=== PATIENT | female | born 1970 | race Hispanic/Latino ===

== ENCOUNTER 2020-06-20 15:19 | Inpatient (IN) | payer MEDICAID ==
[2020-06-20] MEDS ORDERED: SODIUM CHLORIDE 0.9% 1000 ML 1,000 ML ONE ×2 (15:27→17:00)
[2020-06-20] MEDS ORDERED: NALOXONE 2 MG/2 ML INJ IV ONE (15:43)
--- NOTE | 2020-06-20 15:45 | Emergency Department Report ---
HPI - General Time Seen by Provider: 06/20/20 15:40 - HPI HPI: This is a 50-year-old female who presents to the emergency department via EMS from home with complaint of altered mental status. Patient was found to have a blood sugar critically high, greater than 500. An IV was placed in route and she was started on some IV fluid resuscitation. The patient was here about 1 month ago for altered mental status as well and was admitted with DKA, hyperkalemia, among other diagnoses. The patient does have a past medical history of insulin-dependent diabetes and has an insulin pump attached. She also has history of chronic kidney disease, iron deficiency anemia, breast cancer, hypertension, previous CVA. The patient is currently a poor historian secondary to her current medical condition. ED Past Medical Hx - Past Medical History Hx Hypertension: Yes Hx CVA: Yes Hx Diabetes: Yes Hx Renal Disease: Yes Additional medical history: HIGH CHOLESTEROL. HERPES - Surgical History Additional Surgical History: LEFT KNEE SURGERY. RIGHT ELBOW SURGERY. THYROIDEC CECILLE - Social History Smoking Status: Unknown if ever smoked - Medications Home Medications: Home Medications Medication Instructions Recorded Confirmed Last Taken Type amLODIPine 10 mg PO QDAY #30 tablet 05/03/20 Unknown Rx carvediloL [Coreg] 6.25 mg PO QDAY@0800 #60 tablet 05/03/20 Unknown Rx hydrALAZINE [Apresoline TAB] 50 mg PO Q8HR #180 tablet 05/03/20 Unknown Rx levoFLOXacin [Levaquin TAB] 500 mg PO QDAY #4 tablet 05/03/20 Unknown Rx ED Review of Systems ROS: Stated complaint: UNRESPONSIVE Other details as noted in HPI Comment: Unobtainable due to pts medical conditions Physical Exam - Physical Exam Physical Exam: GENERAL: The patient is ill-appearing. HENT: Normocephalic. Atraumatic. Patient has moist mucous membranes. EYES: Pupils equal reactive to light bilaterally. NECK: Supple. Trachea is midline. CHEST/LUNGS: Clear to auscultation. There is no respiratory distress noted. HEART/CARDIOVASCULAR: Regular. There is mild tachycardia. There is no murmur. ABDOMEN: Abdomen is soft, nontender. Patient has normal bowel sounds. SKIN: Skin is warm and dry. NEURO: Patient is very sleepy but is arousable. However she goes right back to sleep if not continuously stimulated. Withdraws from painful stimuli. MUSCULOSKELETAL: There is no obvious deformity. ED Course - Reevaluation(s) Reevaluation #1: 06/20/20 19:07 Lab Results 06/20/20 06/20/20 06/20/20 Range/Units 15:48 15:54 15:54 WBC 26.7 H (4.5-11.0) K/mm3 RBC 3.22 L (3.65-5.03) M/mm3 Hgb 11.4 (10.1-14.3) gm/dl Hct 35.6 (30.3-42.9) % MCV 111 H (79-97) fl MCH 36 H (28-32) pg MCHC 32 (30-34) % RDW 15.1 (13.2-15.2) % Plt Count 244 (140-440) K/mm3 Add Manual Diff Complete Total Counted 100 Seg Neuts % (Manual) 84.0 H (40.0-70.0) % Band Neutrophils % 0 % Lymphocytes % (Manual) 10.0 L (13.4-35.0) % Reactive Lymphs % (Man) 0 % Monocytes % (Manual) 6.0 (0.0-7.3) % Eosinophils % (Manual) 0 (0.0-4.3) % Basophils % (Manual) 0 (0.0-1.8) % Metamyelocytes % 0 % Myelocytes % 0 % Promyelocytes % 0 % Blast Cells % 0 % Nucleated RBC % Not Reportable Seg Neutrophils # Man 22.4 H (1.8-7.7) K/mm3 Band Neutrophils # 0.0 K/mm3 Lymphocytes # (Manual) 2.7 (1.2-5.4) K/mm3 Abs React Lymphs (Man) 0.0 K/mm3 Monocytes # (Manual) 1.6 H (0.0-0.8) K/mm3 Eosinophils # (Manual) 0.0 (0.0-0.4) K/mm3 Basophils # (Manual) 0.0 (0.0-0.1) K/mm3 Metamyelocytes # 0.0 K/mm3 Myelocytes # 0.0 K/mm3 Promyelocytes # 0.0 K/mm3 Blast Cells # 0.0 K/mm3 WBC Morphology Not Reportable Hypersegmented Neuts Not Reportable Hyposegmented Neuts Not Reportable Hypogranular Neuts Not Reportable Smudge Cells Not Reportable Toxic Granulation Not Reportable Toxic Vacuolation Not Reportable Dohle Bodies Not Reportable Pelger-Huet Anomaly Not Reportable Mekhi Rods Not Reportable Platelet Estimate Not Reportable Clumped Platelets Not Reportable Plt Clumps, EDTA Not Reportable Large Platelets Not Reportable Giant Platelets Not Reportable Platelet Satelliting Not Reportable Plt Morphology Comment Not Reportable RBC Morphology Normal Dimorphic RBCs Not Reportable Polychromasia Not Reportable Hypochromasia Not Reportable Poikilocytosis Not Reportable Anisocytosis Not Reportable Microcytosis Not Reportable Macrocytosis Not Reportable Spherocytes Not Reportable Pappenheimer Bodies Not Reportable Sickle Cells Not Reportable Target Cells Not Reportable Tear Drop Cells Not Reportable Ovalocytes Not Reportable Helmet Cells Not Reportable Pope-Noble Bodies Not Reportable Adrian Rings Not Reportable [place] Cells Not Reportable Bite Cells Not Reportable Crenated Cell Not Reportable Elliptocytes Not Reportable Acanthocytes (Spur) Not Reportable Rouleaux Not Reportable Hemoglobin C Crystals Not Reportable Schistocytes Not Reportable Malaria parasites Not Reportable Aden Bodies Not Reportable Hem Pathologist Commnt No VBG pH (7.320-7.420) Sodium 133 L (137-145) mmol/L Potassium 6.3 H* (3.6-5.0) mmol/L Chloride 90.8 L (98-107) mmol/L Carbon Dioxide 11 L (22-30) mmol/L Anion Gap 38 mmol/L BUN 48 H (7-17) mg/dL Creatinine 3.3 H (0.6-1.2) mg/dL Estimated GFR 15 ml/min BUN/Creatinine Ratio 15 % Glucose 730 H* (65-100) mg/dL POC Glucose > 500 H (70-105) mg/dL Ketones Quantitative Small (Negative) Calcium 9.6 (8.4-10.2) mg/dL Total Bilirubin 0.40 (0.1-1.2) mg/dL AST 24 (5-40) units/L ALT 14 (7-56) units/L Alkaline Phosphatase 64 (35-129) units/L Ammonia (25-60) umol/L Troponin T 0.025 (0.00-0.029) ng/mL Total Protein 6.5 (6.3-8.2) g/dL Albumin 3.5 L (3.9-5) g/dL Albumin/Globulin Ratio 1.2 % TSH (0.270-4.200) mlU/mL Plasma/Serum Alcohol (0-0.07) % 06/20/20 06/20/20 06/20/20 Range/Units 15:54 15:54 15:54 WBC (4.5-11.0) K/mm3 RBC (3.65-5.03) M/mm3 Hgb (10.1-14.3) gm/dl Hct (30.3-42.9) % MCV (79-97) fl MCH (28-32) pg MCHC (30-34) % RDW (13.2-15.2) % Plt Count (140-440) K/mm3 Add Manual Diff Total Counted Seg Neuts % (Manual) (40.0-70.0) % Band Neutrophils % % Lymphocytes % (Manual) (13.4-35.0) % Reactive Lymphs % (Man) % Monocytes % (Manual) (0.0-7.3) % Eosinophils % (Manual) (0.0-4.3) % Basophils % (Manual) (0.0-1.8) % Metamyelocytes % % Myelocytes % % Promyelocytes % % Blast Cells % % Nucleated RBC % Seg Neutrophils # Man (1.8-7.7) K/mm3 Band Neutrophils # K/mm3 Lymphocytes # (Manual) (1.2-5.4) K/mm3 Abs React Lymphs (Man) K/mm3 Monocytes # (Manual) (0.0-0.8) K/mm3 Eosinophils # (Manual) (0.0-0.4) K/mm3 Basophils # (Manual) (0.0-0.1) K/mm3 Metamyelocytes # K/mm3 Myelocytes # K/mm3 Promyelocytes # K/mm3 Blast Cells # K/mm3 WBC Morphology Hypersegmented Neuts Hyposegmented Neuts Hypogranular Neuts Smudge Cells Toxic Granulation Toxic Vacuolation Dohle Bodies Pelger-Huet Anomaly Mekhi Rods Platelet Estimate Clumped Platelets Plt Clumps, EDTA Large Platelets Giant Platelets Platelet Satelliting Plt Morphology Comment RBC Morphology Dimorphic RBCs Polychromasia Hypochromasia Poikilocytosis Anisocytosis Microcytosis Macrocytosis Spherocytes Pappenheimer Bodies Sickle Cells Target Cells Tear Drop Cells Ovalocytes Helmet Cells Pope-Noble Bodies Adrian Rings [place] Cells Bite Cells Crenated Cell Elliptocytes Acanthocytes (Spur) Rouleaux Hemoglobin C Crystals Schistocytes Malaria parasites Aden Bodies Hem Pathologist Commnt VBG pH (7.320-7.420) Sodium (137-145) mmol/L Potassium (3.6-5.0) mmol/L Chloride (98-107) mmol/L Carbon Dioxide (22-30) mmol/L Anion Gap mmol/L BUN (7-17) mg/dL Creatinine (0.6-1.2) mg/dL Estimated GFR ml/min BUN/Creatinine Ratio % Glucose (65-100) mg/dL POC Glucose (70-105) mg/dL Ketones Quantitative (Negative) Calcium (8.4-10.2) mg/dL Total Bilirubin (0.1-1.2) mg/dL AST (5-40) units/L ALT (7-56) units/L Alkaline Phosphatase (35-129) units/L Ammonia 51.0 (25-60) umol/L Troponin T (0.00-0.029) ng/mL Total Protein (6.3-8.2) g/dL Albumin (3.9-5) g/dL Albumin/Globulin Ratio % TSH 0.349 (0.270-4.200) mlU/mL Plasma/Serum Alcohol < 0.01 (0-0.07) % 06/20/20 Range/Units 15:54 WBC (4.5-11.0) K/mm3 RBC (3.65-5.03) M/mm3 Hgb (10.1-14.3) gm/dl Hct (30.3-42.9) % MCV (79-97) fl MCH (28-32) pg MCHC (30-34) % RDW (13.2-15.2) % Plt Count (140-440) K/mm3 Add Manual Diff Total Counted Seg Neuts % (Manual) (40.0-70.0) % Band Neutrophils % % Lymphocytes % (Manual) (13.4-35.0) % Reactive Lymphs % (Man) % Monocytes % (Manual) (0.0-7.3) % Eosinophils % (Manual) (0.0-4.3) % Basophils % (Manual) (0.0-1.8) % Metamyelocytes % % Myelocytes % % Promyelocytes % % Blast Cells % % Nucleated RBC % Seg Neutrophils # Man (1.8-7.7) K/mm3 Band Neutrophils # K/mm3 Lymphocytes # (Manual) (1.2-5.4) K/mm3 Abs React Lymphs (Man) K/mm3 Monocytes # (Manual) (0.0-0.8) K/mm3 Eosinophils # (Manual) (0.0-0.4) K/mm3 Basophils # (Manual) (0.0-0.1) K/mm3 Metamyelocytes # K/mm3 Myelocytes # K/mm3 Promyelocytes # K/mm3 Blast Cells # K/mm3 WBC Morphology Hypersegmented Neuts Hyposegmented Neuts Hypogranular Neuts Smudge Cells Toxic Granulation Toxic Vacuolation Dohle Bodies Pelger-Huet Anomaly Mekhi Rods Platelet Estimate Clumped Platelets Plt Clumps, EDTA Large Platelets Giant Platelets Platelet Satelliting Plt Morphology Comment RBC Morphology Dimorphic RBCs Polychromasia Hypochromasia Poikilocytosis Anisocytosis Microcytosis Macrocytosis Spherocytes Pappenheimer Bodies Sickle Cells Target Cells Tear Drop Cells Ovalocytes Helmet Cells Pope-Noble Bodies Adrian Rings [place] Cells Bite Cells Crenated Cell Elliptocytes Acanthocytes (Spur) Rouleaux Hemoglobin C Crystals Schistocytes Malaria parasites Aden Bodies Hem Pathologist Commnt VBG pH 7.229 L (7.320-7.420) Sodium (137-145) mmol/L Potassium (3.6-5.0) mmol/L Chloride (98-107) mmol/L Carbon Dioxide (22-30) mmol/L Anion Gap mmol/L BUN (7-17) mg/dL Creatinine (0.6-1.2) mg/dL Estimated GFR ml/min BUN/Creatinine Ratio % Glucose (65-100) mg/dL POC Glucose (70-105) mg/dL Ketones Quantitative (Negative) Calcium (8.4-10.2) mg/dL Total Bilirubin (0.1-1.2) mg/dL AST (5-40) units/L ALT (7-56) units/L Alkaline Phosphatase (35-129) units/L Ammonia (25-60) umol/L Troponin T (0.00-0.029) ng/mL Total Protein (6.3-8.2) g/dL Albumin (3.9-5) g/dL Albumin/Globulin Ratio % TSH (0.270-4.200) mlU/mL Plasma/Serum Alcohol (0-0.07) % ED Medical Decision Making - Lab Data Result diagrams: 06/20/20 15:54 06/20/20 15:54 - Radiology Data Radiology results: report reviewed, image reviewed interpreted by me: Chest x-ray does not show any acute process. There are no pleural effusions, obvious pneumonia and there is no pneumothorax. No significant cardiomegaly. CT head/brain wo con INDICATION: Altered mental status. TECHNIQUE: Routine CT head. All CT scans at this location are performed using CT dose reduction for ALARA by means of automated exposure control. COMPARISON: 04/30/2020 FINDINGS: Intracranial: Unchanged encephalomalacia from prior left MCA distribution infarction. 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 No evidence for acute infarction.. No intracranial hemorrhage. No extra axial c ollection.. No hydrocephalus. No herniation. Sinuses: Paranasal sinuses and mastoid air cells are essentially clear. Orbits: Globes are intact. Calvarium: No acute fracture. IMPRESSION: 1. No acute intracranial abnormality. - Medical Decision Making Patient presents with altered mental status and suspicion of DKA. The patient had a similar presentation about 1 month ago. EMS had a critical high blood sugar of greater than 500. Patient was given a dose of Narcan without any change in her responsiveness. At first the patient had some hypotension and was given a 1 L IV fluid bolus. The patient does appear in DKA with a blood sugar greater than 700, venous pH of 7.22, anion gap of 38 and serum ketones found. She was started on insulin drip. The patient also has hyperkalemia with a potassium of 6.3. This should come down with the insulin drip. Patient has a leukocytosis of 26,000. Patient also has acute on chronic renal failure. Chest x-ray was done that does not show any pneumonia, pleural effusions, or any other acute process. The patient had a CT scan of the head without contrast that does not show any bleed, shift, mass, ischemia, or any other acute process. The patient will be admitted to the ICU and has been accepted for admission by the hospitalist, Dr. Navas. Critical Care Time: Yes Critical care time in (mins) excluding proc time.: 35 Critical care attestation.: If time is entered above; I have spent that time in minutes in the direct care of this critically ill patient, excluding procedure time. Critical care time was spent on this patient in doing her initial evaluation, multiple reevaluations, ordering and interpretation of labs and imaging, insulin drip for her DKA, IV fluid resuscitation, treatment of the hyperkalemia, discussion with the hospitalist service. Critical Care Time: 35 minutes ED Disposition Clinical Impression: Hyperkalemia, Acute encephalopathy DKA (diabetic ketoacidoses) Qualifiers: Diabetes mellitus type: type 1 Diabetes mellitus complication detail: without coma Qualified Code(s): E10.10 - Type 1 diabetes mellitus with ketoacidosis with out coma Hypotension Qualifiers: Hypotension type: unspecified hypotension type Qualified Code(s): I95.9 - Hypotension, unspecified Acute on chronic renal failure Qualifiers: Acute renal failure type: unspecified Chronic kidney disease stage: unspecified stage Qualified Code(s): N17.9 - Acute kidney failure, unspecified; N18.9 - Chronic kidney disease, unspecified Disposition: -09 OP ADMIT IP TO THIS HOSP Is pt being admited?: Yes Condition: Serious Time of Disposition: 17:18
[2020-06-20 16:45] LABS: Alanine Aminotransferase 14 units/L (7-56); Albumin 3.5 g/dL (3.9-5); BUN/Creatinine Ratio 15; Blood Urea Nitrogen 48 mg/dL (7-17); Calcium 9.6 mg/dL (8.4-10.2); Hemolysis Index 12
--- NOTE | 2020-06-20 16:51 | XRay Report ---
CHEST 1 VIEW INDICATION: AMS. COMPARISON: 04/30/2020. FINDINGS: Support devices: None. Heart: Within normal limits. Lungs/Pleura: No acute air space or interstitial disease. Additional findings: None. IMPRESSION: No acute abnormality. Signer Name: Babar Ramirez MD Signed: 06/20/2020 4:47 PM Workstation Name: [id number]
[2020-06-20] MEDS ORDERED: INSULIN REGULAR, HUMAN 100 UNITS in SODIUM CHLORIDE 0.9% 99 ML IV SCH ×2 (17:00→23:00)
--- NOTE | 2020-06-20 17:04 | Cat Scan Report ---
CT head/brain wo con INDICATION: Altered mental status. TECHNIQUE: Routine CT head. All CT scans at this location are performed using CT dose reduction for A LOIS by means of automated exposure control. COMPARISON: 04/30/2020 FINDINGS: Intracranial: Unchanged encephalomalacia from prior left MCA distribution infarction. Unchanged posto perative changes from prior left aneurysm coiling. No evidence for acute infarction.. No intracranial hemorrhage. No extra axial collection.. No hydrocephalus. No herniation. Sinuses: Paranasal sinuses and mastoid air cells are essentially clear. Orbits: Globes are intact. Calvarium: No acute fracture. IMPRESSION: 1. No acute intracranial abnormality. Signer Name: Zackary Jaramillo MD Signed: 06/20/2020 5:00 PM Workstation Name: [id number]
[2020-06-20 17:09] LABS: Hematocrit 35.6 % (30.3-42.9); Hemoglobin 11.4 gm/dl (10.1-14.3); Mean Corpuscular HGB Conc 32 % (30-34); Platelet Count 244 K/mm3 (140-440); Red Blood Count 3.22 M/mm3 (3.65-5.03); Red Cell Distribution Width 15.1 % (13.2-15.2)
[2020-06-20 17:11] LABS: Mean Corpuscular Volume 111 fl (79-97)
[2020-06-20] MEDS ORDERED: SODIUM CHLORIDE 0.9% 1000 ML 1,000 ML IV ONE (17:32)
[2020-06-20 18:19] LABS: Basophils % (Manual) 0 % (0.0-1.8); Eosinophils % (Manual) 0 % (0.0-4.3); Total Cells Counted 100
[2020-06-20 18:20] LABS: RBC Morphology Normal
[2020-06-20 19:54] LABS: Calcium 9.4 mg/dL (8.4-10.2)
[2020-06-20 22:00] LABS: Calcium 9.2 mg/dL (8.4-10.2)
[2020-06-20] MEDS ORDERED: ONDANSETRON 4 MG/2 ML INJ IV PRN (22:20)
[2020-06-20] MEDS ORDERED: METOCLOPRAMIDE 10 MG/2 ML INJ IV PRN ×2 (22:20→22:27)
[2020-06-20] MEDS ORDERED: HYDROmorphone 1 MG/1 ML INJ IV PRN (22:20)
[2020-06-20] MEDS ORDERED: MORPHINE 2 MG/1 ML INJ IV PRN (22:20)
[2020-06-20] MEDS ORDERED: ACETAMINOPHEN 325 MG TAB PO PRN (22:20)
[2020-06-20] MEDS ORDERED: DEXTROSE 50% IN WATER (25GM) 50 ML SYRINGE IV PRN (22:25)
[2020-06-20] MEDS ORDERED: FAMOTIDINE 20 MG/2 ML INJ IV SCH (23:00)
[2020-06-20] MEDS: hydrALAZINE 25 MG TAB PO SCH (23:00)
[2020-06-20] MEDS ORDERED: POTASSIUM CHLORIDE 10 MEQ 10 MEQ/100 ML BAG IV SCH (23:00)
[2020-06-20] MEDS: SODIUM CHLORIDE 0.9% 1000 ML 1,000 ML IV SCH (23:15)
[2020-06-21] MEDS: FAMOTIDINE 20 MG/2 ML INJ IV SCH ×2 (00:47→09:19)
[2020-06-21 02:32] LABS: Bilirubin,Urine NEG (Negative); Blood,Urine NEG (Negative); Color,Urine Yellow (Yellow); Mucus,Urine FEW /HPF; Protein,Urine <15 mg/dL mg/dL (Negative); Urobilinogen,Urine < 2.0 mg/dL (<2.0)
[2020-06-21 02:37] LABS: Amphetamine Screen,Urine PRESUMPTIVE NEGATIVE; Benzodiazepines Screen,Urine PRESUMPTIVE NEGATIVE; Cannabinoid Screen,Urine PRESUMPTIVE POSITIVE; Cocaine Screen,Urine PRESUMPTIVE NEGATIVE; Methadone Screen,Urine PRESUMPTIVE NEGATIVE; Opiate Screen,Urine PRESUMPTIVE NEGATIVE
[2020-06-21] MEDS ORDERED: SODIUM CHLORIDE 0.9% 250ML 250 ML IV ONE (04:16)
[2020-06-21 05:57] LABS: Calcium 8.6 mg/dL (8.4-10.2)
[2020-06-21] MEDS: hydrALAZINE 25 MG TAB PO SCH (06:20)
[2020-06-21] MEDS ORDERED: D5W/0.45% NACL/KCL 20 MEQ 20 MEQ/1,000 ML BAG IV SCH (07:00)
--- NOTE | 2020-06-21 07:21 | History and Physical Report ---
History of Present Illness Date of examination: 06/20/20 Date of admission: 06/20/20 17:59 Chief complaint: Altered mental status since a.m. History of present illness: 50-year-old female with history of type 1 diabetes brought in by EMS from home with altered mental status. Patient was found to have very high blood glucose level of 500 in the emergency room with his around 730. Patient was started on IV fluid resuscitation. Patient is not taking her insulin regularly. Patient has insulin pump in the past. Noncompliant. No nausea vomiting. Decr eased sensorium. No seizures. No fever or chills no exposure to coronavirus. - Past Medical History Hx Hypertension: Yes Hx CVA: Yes Hx Diabetes: Yes Hx Renal Disease: Yes Additional medical history: HIGH CHOLESTEROL. HERPES - Surgical History Additional Surgical History: LEFT KNEE SURGERY. RIGHT ELBOW SURGERY. THYR OIDECTOMY - Social History Smoking Status: Unknown if ever smoked - Medications Home Medications: Home Medications Medication Instructions Recorded Confirmed Last Taken Type amLODIPine 10 mg PO QDAY #30 tablet 05/03/20 Unknown Rx carvediloL [Coreg] 6.25 mg PO QDAY@0800 #60 tablet 05/03/20 Unknown Rx hydrALAZINE [Apresoline TAB] 50 mg PO Q8HR #180 tablet 05/03/20 Unknown Rx levoFLOXacin [Levaquin TAB] 500 mg PO QDAY #4 tablet 05/03/20 Unknown Rx Review of Systems ROS: Constitutional altered sensorium HEENT no sore throat no post nasal drip no diplopia Neck no neck stiffness no lymph gland enlargement Chest and lungs no shortness of breath cough or wheezing CVS no chest pain no diaphoresis no palpitations GI no nausea no vomiting no diarrhea Genitourinary system no dysuria no flank pain Musculoskeletal system no muscle pains no joint pains [employer] altered sensorium Psychiatric no depression no homicidal or suicidal tendencies Hematologic no lymphedema or bruising Endocrine no polydipsia no polyuria no cold intolerance no heat intolerance Medications and Allergies Allergies Allergy/AdvReac Type Severity Reaction Status Date / Time codeine Allergy Itching Verified 06/20/20 16:09 Home Medications Medication Instructions Recorded Confirmed Last Taken Type amLODIPine 10 mg PO QDAY #30 tablet 05/03/20 Unknown Rx carvediloL [Coreg] 6.25 mg PO QDAY@0800 #60 tablet 05/03/20 Unknown Rx hydrALAZINE [Apresoline TAB] 50 mg PO Q8HR #180 tablet 05/03/20 Unknown Rx levoFLOXacin [Levaquin TAB] 500 mg PO QDAY #4 tablet 05/03/20 Unknown Rx Active Meds: Active Medications Acetaminophen (Tylenol) 650 mg PO Q4H PRN PRN Reason: Pain MILD(1-3)/Fever >100.5/ELY Amlodipine Besylate (Amlodipine) 10 mg PO QDAY [facility] Carvedilol (Coreg) 6.25 mg PO QDAY@0800 [facility] Dextrose (D50w (25gm) Syringe) 0 ml IV Q30MIN PRN; Protocol PRN Reason: Hypoglycemia Famotidine (Pepcid) 20 mg IV DAILY [facility] Last Admin: 06/21/20 00:47 Dose: Not Given Documented by: Hydralazine HCl (Apresoline) 50 mg PO Q8HR [facility] Last Admin: 06/21/20 06:20 Dose: Not Given Documented by: Hydromorphone HCl (Dilaudid) 0.5 mg IV Q3H PRN PRN Reason: Pain , Severe (7-10) Insulin Human Regular 100 (units/ Sodium Chloride) 100 mls @ 1 mls/hr IV TITR S ; Protocol Last Titration: 06/21/20 05:22 Dose: 4 units/hr, 4 mls/hr Documented by: Ceftriaxone Sodium (Rocephin/Ns 2 Gm/100 Ml) 2 gm in 100 mls @ 200 mls/hr IV Q24HR [facility]; Protocol Sodium Chloride (Nacl 0.9% 1000 Ml) 1,000 mls @ 150 mls/hr IV DIRECT [facility] Last Admin: 06/20/20 23:15 Dose: 150 mls/hr Documented by: Potassium Chloride/Dextrose/Sod Cl (D5w/0.45% Nacl/Kcl 20 Meq) 20 meq in 1,000 mls @ 125 mls/hr IV DIRECT [facility] Last Admin: 06/21/20 06:56 Dose: 125 mls/hr Documented by: Metoclopramide HCl (Reglan) 5 mg IV Q6H PRN PRN Reason: Nausea And Vomiting Morphine Sulfate (Morphine) 2 mg IV Q4H PRN PRN Reason: Pain, Moderate (4-6) Ondansetron HCl (Zofran) 4 mg IV Q3H PRN PRN Reason: Nausea And Vomiting Sodium Chloride (Sodium Chloride Flush Syringe 10 Ml) 10 ml IV BID [facility] Sodium Chloride (Sodium Chloride Flush Syringe 10 Ml) 10 ml IV PRN PRN PRN Reason: LINE FLUSH Last Admin: 06/20/20 23:10 Dose: 10 ml Documented by: Exam - Constitutional Vitals: Temp Pulse Resp BP Pulse Ox 98.4 F 91 H 15 83/40 100 06/21/20 03:22 06/21/20 06:51 06/21/20 06:51 06/21/20 06:20 06/21/20 06:51 General appearance: Present: no acute distress, well-nourished - EENT Eyes: Present: PERRL ENT: hearing intact, clear oral mucosa - Neck Neck: Present: supple, normal ROM - Respiratory Respiratory effort: normal Respiratory: bilateral: CTA - Cardiovascular Heart rate: 78 Rhythm: regular Heart Sounds: Present: S1 & S2. Absent: rub, click - Extremities Extremities: pulses symmetrical, No edema Peripheral Pulses: within normal limits - Abdominal General gastrointestinal: Present: soft, non-tender, non-distended, normal bowel sounds Female genitourinary: Present: normal - Integumentary Integumentary: Present: clear, warm, dry - Musculoskeletal Musculoskeletal: strength equal bilaterally, generalized weakness - Psychiatric Psychiatric: depressed, other (Patient is lethargic and altered sensorium) - Neurologic Neurologic: CNII-XII intact, moves all extremities HEART Score - HEART Score Troponin: Troponin T 0.025 ng/mL (0.00-0.029) 06/20/20 15:54 Results - Labs CBC & Chem 7: 06/20/20 15:54 06/21/20 04:25 Labs: Laboratory Last Values WBC 26.7 K/mm3 (4.5-11.0) H 06/20/20 15:54 RBC 3.22 M/mm3 (3.65-5.03) L 06/20/20 15:54 Hgb 11.4 gm/dl (10.1-14.3) 06/20/20 15:54 Hct 35.6 % (30.3-42.9) 06/20/20 15:54 MCV 111 fl (79-97) H 06/20/20 15:54 MCH 36 pg (28-32) H 06/20/20 15:54 MCHC 32 % (30-34) 06/20/20 15:54 RDW 15.1 % (13.2-15.2) 06/20/20 15:54 Plt Count 244 K/mm3 (140-440) 06/20/20 15:54 Add Manual Diff Complete 06/20/20 15:54 Total Counted 100 06/20/20 15:54 Seg Neuts % (Manual) 84.0 % (40.0-70.0) H 06/20/20 15:54 Band Neutrophils % 0 % 06/20/20 15:54 Lymphocytes % (Manual) 10.0 % (13.4-35.0) L 06/20/20 15:54 Reactive Lymphs % (Man) 0 % 06/20/20 15:54 Monocytes % (Manual) 6.0 % (0.0-7.3) 06/20/20 15:54 Eosinophils % (Manual) 0 % (0.0-4.3) 06/20/20 15:54 Basophils % (Manual) 0 % (0.0-1.8) 06/20/20 15:54 Metamyelocytes % 0 % 06/20/20 15:54 Myelocytes % 0 % 06/20/20 15:54 Promyelocytes % 0 % 06/20/20 15:54 Blast Cells % 0 % 06/20/20 15:54 Nucleated RBC % Not Reportable 06/20/20 15:54 Seg Neutrophils # Man 22.4 K/mm3 (1.8-7.7) H 06/20/20 15:54 Band Neutrophils # 0.0 K/mm3 06/20/20 15:54 Lymphocytes # (Manual) 2.7 K/mm3 (1.2-5.4) 06/20/20 15:54 Abs React Lymphs (Man) 0.0 K/mm3 06/20/20 15:54 Monocytes # (Manual) 1.6 K/mm3 (0.0-0.8) H 06/20/20 15:54 Eosinophils # (Manual) 0.0 K/mm3 (0.0-0.4) 06/20/20 15:54 Basophils # (Manual) 0.0 K/mm3 (0.0-0.1) 06/20/20 15:54 Metamyelocytes # 0.0 K/mm3 06/20/20 15:54 Myelocytes # 0.0 K/mm3 06/20/20 15:54 Promyelocytes # 0.0 K/mm3 06/20/20 15:54 Blast Cells # 0.0 K/mm3 06/20/20 15:54 WBC Morphology Not Reportable 06/20/20 15:54 Hypersegmented Neuts Not Reportable 06/20/20 15:54 Hyposegmented Neuts Not Reportable 06/20/20 15:54 Hypogranular Neuts Not Reportable 06/20/20 15:54 Smudge Cells Not Reportable 06/20/20 15:54 Toxic Granulation Not Reportable 06/20/20 15:54 Toxic Vacuolation Not Reportable 06/20/20 15:54 Dohle Bodies Not Reportable 06/20/20 15:54 Pelger-Huet Anomaly Not Reportable 06/20/20 15:54 Mekhi Rods Not Reportable 06/20/20 15:54 Platelet Estimate Not Reportable 06/20/20 15:54 Clumped Platelets Not Reportable 06/20/20 15:54 Plt Clumps, EDTA Not Reportable 06/20/20 15:54 Large Platelets Not Reportable 06/20/20 15:54 Giant Platelets Not Reportable 06/20/20 15:54 Platelet Satelliting Not Reportable 06/20/20 15:54 Plt Morphology Comment Not Reportable 06/20/20 15:54 RBC Morphology Normal 06/20/20 15:54 Dimorphic RBCs Not Reportable 06/20/20 15:54 Polychromasia Not Reportable 06/20/20 15:54 Hypochromasia Not Reportable 06/20/20 15:54 Poikilocytosis Not Reportable 06/20/20 15:54 Anisocytosis Not Reportable 06/20/20 15:54 Microcytosis Not Reportable 06/20/20 15:54 Macrocytosis Not Reportable 06/20/20 15:54 Spherocytes Not Reportable 06/20/20 15:54 Pappenheimer Bodies Not Reportable 06/20/20 15:54 Sickle Cells Not Reportable 06/20/20 15:54 Target Cells Not Reportable 06/20/20 15:54 Tear Drop Cells Not Reportable 06/20/20 15:54 Ovalocytes Not Reportable 06/20/20 15:54 Helmet Cells Not Reportable 06/20/20 15:54 [place] Bodies Not Reportable 06/20/20 15:54 Eros Rings Not Reportable 06/20/20 15:54 [place] Cells Not Reportable 06/20/20 15:54 Bite Cells Not Reportable 06/20/20 15:54 Crenated Cell Not Reportable 06/20/20 15:54 Elliptocytes Not Reportable 06/20/20 15:54 Acanthocytes (Spur) Not Reportable 06/20/20 15:54 Rouleaux Not Reportable 06/20/20 15:54 Hemoglobin C Crystals Not Reportable 06/20/20 15:54 Schistocytes Not Reportable 06/20/20 15:54 Malaria parasites Not Reportable 06/20/20 15:54 Aden Bodies Not Reportable 06/20/20 15:54 Hem Pathologist Commnt No 06/20/20 15:54 VBG pH 7.229 (7.320-7.420) L 06/20/20 15:54 Sodium 143 mmol/L (137-145) 06/21/20 04:25 Potassium 4.0 mmol/L (3.6-5.0) 06/21/20 04:25 Chloride 108.9 mmol/L (98-107) H 06/21/20 04:25 Carbon Dioxide 19 mmol/L (22-30) L 06/21/20 04:25 Anion Gap 19 mmol/L 06/21/20 04:25 BUN 54 mg/dL (7-17) H 06/21/20 04:25 Creatinine 3.2 mg/dL (0.6-1.2) H 06/21/20 04:25 Estimated GFR 15 ml/min 06/21/20 04:25 BUN/Creatinine Ratio 17 % 06/21/20 04:25 Glucose 193 mg/dL (65-100) H 06/21/20 04:25 POC Glucose 189 mg/dL (70-105) H 06/21/20 05:36 Hemoglobin A1c 9.3 % (4-6) H 06/20/20 23:30 Ketones Quantitative Small (Negative) 06/20/20 15:54 Calcium 8.6 mg/dL (8.4-10.2) 06/21/20 04:25 Phosphorus 1.40 mg/dL (2.5-4.5) L D 06/20/20 23:30 Magnesium 2.10 mg/dL (1.7-2.3) 06/20/20 23:30 Total Bilirubin 0.40 mg/dL (0.1-1.2) 06/20/20 15:54 AST 24 units/L (5-40) 06/20/20 15:54 ALT 14 units/L (7-56) 06/20/20 15:54 Alkaline Phosphatase 64 units/L (35-129) 06/20/20 15:54 Ammonia 51.0 umol/L (25-60) 06/20/20 15:54 Troponin T 0.025 ng/mL (0.00-0.029) 06/20/20 15:54 Total Protein 6.5 g/dL (6.3-8.2) 06/20/20 15:54 Albumin 3.5 g/dL (3.9-5) L 06/20/20 15:54 Albumin/Globulin Ratio 1.2 % 06/20/20 15:54 TSH 0.349 mlU/mL (0.270-4.200) 06/20/20 15:54 Urine Color Yellow (Yellow) 06/21/20 01:50 Urine Turbidity Cloudy (Clear) 06/21/20 01:50 Urine pH 5.0 (5.0-7.0) 06/21/20 01:50 Ur Specific [place] 1.013 (1.003-1.030) 06/21/20 01:50 Urine Protein <15 mg/dl mg/dL (Negative) 06/21/20 01:50 Urine Glucose (UA) >=500 mg/dL (Negative) 06/21/20 01:50 Urine Ketones 20 mg/dL (Negative) 06/21/20 01:50 Urine Blood Neg (Negative) 06/21/20 01:50 Urine Nitrite Neg (Negative) 06/21/20 01:50 Urine Bilirubin Neg (Negative) 06/21/20 01:50 Urine Urobilinogen < 2.0 mg/dL (<2.0) 06/21/20 01:50 Ur Leukocyte Esterase Neg (Negative) 06/21/20 01:50 Urine WBC (Auto) 4.0 /HPF (0.0-6.0) 06/21/20 01:50 Urine RBC (Auto) 7.0 /HPF (0.0-6.0) 06/21/20 01:50 U Epithel Cells (Auto) 21.0 /HPF (0-13.0) H 06/21/20 01:50 Urine Mucus Few /HPF 06/21/20 01:50 Urine Creatinine 74.0 mg/dL (0.1-20.0) H 06/21/20 01:50 Urine Microalbumin 4.0 mg/dL (0.1-34.0) 06/21/20 01:50 Microalb/Creat Ratio 54.0 ug/mg 06/21/20 01:50 Urine Opiates Screen Presumptive negative 06/21/20 01:50 Urine Methadone Screen Presumptive negative 06/21/20 01:50 Ur Barbiturates Screen Presumptive negative 06/21/20 01:50 Ur Phencyclidine Scrn Presumptive negative 06/21/20 01:50 Ur Amphetamines Screen Presumptive negative 06/21/20 01:50 U Benzodiazepines Scrn Presumptive negative 06/21/20 01:50 Urine Cocaine Screen Presumptive negative 06/21/20 01:50 U Marijuana (THC) Screen Presumptive positive 06/21/20 01:50 Drugs of Abuse Note Disclamer 06/21/20 01:50 Plasma/Serum Alcohol < 0.01 % (0-0.07) 06/20/20 15:54 Short CBC 06/20/20 Range/Units 15:54 WBC 26.7 H (4.5-11.0) K/mm3 Hgb 11.4 (10.1-14.3) gm/dl Hct 35.6 (30.3-42.9) % Plt Count 244 (140-440) K/mm3 BMP 06/20/20 06/20/20 06/20/20 15:54 19:10 21:30 Sodium 133 L 136 L 138 Potassium 6.3 H* 5.9 H 4.8 Chloride 90.8 L 91.8 L 97.5 L Carbon Dioxide 11 L 7 L* 11 L BUN 48 H 48 H 49 H Creatinine 3.3 H 3.2 H 3.3 H Glucose 730 H* 687 H* 593 H* Calcium 9.6 9.4 9.2 06/20/20 06/21/20 23:30 04:25 Sodium 138 143 Potassium 4.4 4.0 Chloride 100.5 108.9 H Carbon Dioxide 17 L 19 L BUN 51 H 54 H Creatinine 3.4 H 3.2 H Glucose 447 H 193 H Calcium 9.0 8.6 Cardiac Enzymes 06/20/20 Range/Units 15:54 Troponin T 0.025 (0.00-0.029) ng/mL Liver Function 06/20/20 Range/Units 15:54 Total Bilirubin 0.40 (0.1-1.2) mg/dL AST 24 (5-40) units/L ALT 14 (7-56) units/L Alkaline Phosphatase 64 (35-129) units/L Albumin 3.5 L (3.9-5) g/dL Urine 06/21/20 Range/Units 01:50 Urine Color Yellow (Yellow) Urine pH 5.0 (5.0-7.0) Ur Specific [place] 1.013 (1.003-1.030) Urine Protein <15 mg/dl (Negative) mg/dL Urine Glucose (UA) >=500 (Negative) mg/dL - Imaging and Cardiology EKG: report reviewed Chest x-ray: report reviewed CT Scan - head: report reviewed (No acute findings) [place]/IV: Voiding Method External Female Catheter IV Catheter Type [Right Peripheral IV Forearm] Assessment and Plan Assessment and plan: Critical care statement The high probability OF a clinically significant sudden or life-threatening deterioration of the cardiorespiratory system and endocrine system required my full and direct attention, intervention and postoperative management. The aggregate critical care time was 40 minutes. The time is in addition to time spent performing reported procedures but includes the followin: Data review and interpretation 2: Patient assessment and monitoring of vital signs 3: Documentation 4:: Medication orders and management Advance Directives: Yes (Full code) VTE prophylaxis?: Chemical Plan of care discussed with patient/family: Yes - Patient Problems (1) Acute metabolic encephalopathy Current Visit: Yes Status: Acute Plan to address problem: Secondary to DKA and electrolyte disturbances Patient started on DKA protocol Encephalopathy should improve with IV insulin and correction of electrolytes (2) DKA (diabetic ketoacidoses) Current Visit: Yes Status: Acute Qualifiers: Diabetes mellitus type: type 1 Diabetes mellitus complication detail: without coma Qualified Code(s): E10.10 - Type 1 diabetes mellitus with ketoacidosis without coma Plan to address problem: DKA protocol IV insulin IV fluids (3) Hyperkalemia Current Visit: Yes Status: Acute Plan to address problem: Should correct with correction of blood glucose levels (4) Sepsis Current Visit: Yes Status: Acute Plan to address problem: Patient has a high white count of 26,000 Source of infection not known Urinalysis and urine cultures ordered Patient started on IV Rocephin empirically Possible demargination (5) CKD (chronic kidney disease) Current Visit: Yes Status: Acute Qualifiers: Chronic kidney disease stage: stage 4 (severe) Qualified Code(s): N18.4 - Chronic kidney disease, stage 4 (severe) Plan to address problem: Nephrology consult requested (6) Hyperlipidemia Current Visit: Yes Status: Chronic Qualifiers: Hyperlipidemia type: mixed hyperlipidemia Qualified Code(s): E78.2 - Mixed hyperlipidemia Plan to address problem: On statins (7) DVT prophylaxis Current Visit: Yes Status: Acute Plan to address problem: On heparin and GI prophylaxis
[2020-06-21] MEDS ORDERED: carvediloL 6.25 MG TAB PO SCH (08:00)
--- NOTE | 2020-06-21 08:42 | Progress Note ---
Assessment and Plan Assessment and plan: --Acute metabolic encephalopathy Current Visit: Yes Status: Acute Plan to address problem: Multifactorial .secondary to DKA, severe acidosis Underlying electrolyte abnormalities, acute on chronic kidney disease Treat underlying cause, closely monitor --DKA (diabetic ketoacidoses) Current Visit: Yes Status: Acute Plan to address problem: Continue DKA pathway per protocol,Insulin drip, rigorous IV hydration Monitor electrolytes, correct as needed, Monitor a gap, bicarbonate, Diabetic education, nutrition education We will set up home health nurse for disease monitoring at discharge When the gap closes, and acidosis improves May start ADA diet and transition to long-acting insulin, HbA1c 9.3 -- Hyperkalemia; present on admission Current Visit: Yes Status: Acute Plan to address problem: Resolved .closely monitor electrolytes and correct as needed --Possible sepsis Current Visit: Yes Status: Acute Plan to address problem: Patient has a high white count of 26,000 Source of infection not known Urinalysis and urine cultures ordered Patient started on IV Rocephin empirically --Acute on CKD 3 (chronic kidney disease) Current Visit: Yes Status: Acute Plan to address problem: Due to diabetic nephropathy , severe dehydration prerenal azotemia As well as vasomotor nephropathy, avoid nephrotoxins nephrology consulted, renal ultrasound if needed Renal dosing of medications --Dyslipidemia ; Current Visit: Yes Status: Chronic Plan to address problem: Continue statins, low-cholesterol diet --DVT prophylaxis Current Visit: Yes Status: Acute Plan to address problem: On heparin and GI prophylaxis We will closely monitor the patient and adjust the management as needed Plan of care reviewed with the patient and her nurse Critical care time 40 minutes Follow next BMP, transition to long-acting insulin starting diet if Anion gap is closed The high probability of a clinically significant, sudden or life threatening deterioration of the [Metabolic, renal , neurological and endocrine] system(s) required my full and direct attention, intervention and personal management. The aggregate critical care time was [32] minutes without overlap. Time includes spent on [x] Data Review and interpretation [x] Patient assessment and monitoring of vital signs [x] Documentation [x] Medication orders and management History Interval history: I have seen and examined the patient at the bedside in ICU this morning Patient's chart, tests reports, current medications reviewed. Patient was admitted with diabetic ketoacidosis On DKA pathway with insulin drip and IV fluids Patient feels slightly better wants some food Vital signs noted Hospitalist Physical - Constitutional Vitals: Temp Pulse Resp BP Pulse Ox 98.4 F 91 H 15 83/40 100 06/21/20 03:22 06/21/20 06:51 06/21/20 06:51 06/21/20 06:20 06/21/20 06:51 General appearance: Present: no acute distress, well-nourished - EENT Eyes: Present: PERRL, EOM intact - Neck Neck: Present: supple, normal ROM - Respiratory Respiratory effort: normal Respiratory: bilateral: diminished, negative: rales, rhonchi, wheezing - Cardiovascular Rhythm: regular Heart Sounds: Present: S1 & S2 - Extremities Extremities: no ischemia, No edema - Abdominal General gastrointestinal: soft, non-tender, non-distended, normal bowel sounds - Integumentary Integumentary: Present: clear, warm - Psychiatric Psychiatric: appropriate mood/affect - Neurologic Neurologic: CNII-XII intact HEART Score - HEART Score Troponin: Troponin T 0.025 ng/mL (0.00-0.029) 06/20/20 15:54 Results - Labs CBC & Chem 7: 06/20/20 15:54 06/21/20 10:26 Labs: Laboratory Last Values WBC 26.7 K/mm3 (4.5-11.0) H 06/20/20 15:54 RBC 3.22 M/mm3 (3.65-5.03) L 06/20/20 15:54 Hgb 11.4 gm/dl (10.1-14.3) 06/20/20 15:54 Hct 35.6 % (30.3-42.9) 06/20/20 15:54 MCV 111 fl (79-97) H 06/20/20 15:54 MCH 36 pg (28-32) H 06/20/20 15:54 MCHC 32 % (30-34) 06/20/20 15:54 RDW 15.1 % (13.2-15.2) 06/20/20 15:54 Plt Count 244 K/mm3 (140-440) 06/20/20 15:54 Add Manual Diff Complete 06/20/20 15:54 Total Counted 100 06/20/20 15:54 Seg Neuts % (Manual) 84.0 % (40.0-70.0) H 06/20/20 15:54 Band Neutrophils % 0 % 06/20/20 15:54 Lymphocytes % (Manual) 10.0 % (13.4-35.0) L 06/20/20 15:54 Reactive Lymphs % (Man) 0 % 06/20/20 15:54 Monocytes % (Manual) 6.0 % (0.0-7.3) 06/20/20 15:54 Eosinophils % (Manual) 0 % (0.0-4.3) 06/20/20 15:54 Basophils % (Manual) 0 % (0.0-1.8) 06/20/20 15:54 Metamyelocytes % 0 % 06/20/20 15:54 Myelocytes % 0 % 06/20/20 15:54 Promyelocytes % 0 % 06/20/20 15:54 Blast Cells % 0 % 06/20/20 15:54 Nucleated RBC % Not Reportable 06/20/20 15:54 Seg Neutrophils # Man 22.4 K/mm3 (1.8-7.7) H 06/20/20 15:54 Band Neutrophils # 0.0 K/mm3 06/20/20 15:54 Lymphocytes # (Manual) 2.7 K/mm3 (1.2-5.4) 06/20/20 15:54 Abs React Lymphs (Man) 0.0 K/mm3 06/20/20 15:54 Monocytes # (Manual) 1.6 K/mm3 (0.0-0.8) H 06/20/20 15:54 Eosinophils # (Manual) 0.0 K/mm3 (0.0-0.4) 06/20/20 15:54 Basophils # (Manual) 0.0 K/mm3 (0.0-0.1) 06/20/20 15:54 Metamyelocytes # 0.0 K/mm3 06/20/20 15:54 Myelocytes # 0.0 K/mm3 06/20/20 15:54 Promyelocytes # 0.0 K/mm3 06/20/20 15:54 Blast Cells # 0.0 K/mm3 06/20/20 15:54 WBC Morphology Not Reportable 06/20/20 15:54 Hypersegmented Neuts Not Reportable 06/20/20 15:54 Hyposegmented Neuts Not Reportable 06/20/20 15:54 Hypogranular Neuts Not Reportable 06/20/20 15:54 Smudge Cells Not Reportable 06/20/20 15:54 Toxic Granulation Not Reportable 06/20/20 15:54 Toxic Vacuolation Not Reportable 06/20/20 15:54 Dohle Bodies Not Reportable 06/20/20 15:54 Pelger-Huet Anomaly Not Reportable 06/20/20 15:54 Mekhi Rods Not Reportable 06/20/20 15:54 Platelet Estimate Not Reportable 06/20/20 15:54 Clumped Platelets Not Reportable 06/20/20 15:54 Plt Clumps, EDTA Not Reportable 06/20/20 15:54 Large Platelets Not Reportable 06/20/20 15:54 Giant Platelets Not Reportable 06/20/20 15:54 Platelet Satelliting Not Reportable 06/20/20 15:54 Plt Morphology Comment Not Reportable 06/20/20 15:54 RBC Morphology Normal 06/20/20 15:54 Dimorphic RBCs Not Reportable 06/20/20 15:54 Polychromasia Not Reportable 06/20/20 15:54 Hypochromasia Not Reportable 06/20/20 15:54 Poikilocytosis Not Reportable 06/20/20 15:54 Anisocytosis Not Reportable 06/20/20 15:54 Microcytosis Not Reportable 06/20/20 15:54 Macrocytosis Not Reportable 06/20/20 15:54 Spherocytes Not Reportable 06/20/20 15:54 Pappenheimer Bodies Not Reportable 06/20/20 15:54 Sickle Cells Not Reportable 06/20/20 15:54 Target Cells Not Reportable 06/20/20 15:54 Tear Drop Cells Not Reportable 06/20/20 15:54 Ovalocytes Not Reportable 06/20/20 15:54 Helmet Cells Not Reportable 06/20/20 15:54 Pope-Wheeling Bodies Not Reportable 06/20/20 15:54 Cantil Rings Not Reportable 06/20/20 15:54 Colette Cells Not Reportable 06/20/20 15:54 Bite Cells Not Reportable 06/20/20 15:54 Crenated Cell Not Reportable 06/20/20 15:54 Elliptocytes Not Reportable 06/20/20 15:54 Acanthocytes (Spur) Not Reportable 06/20/20 15:54 Rouleaux Not Reportable 06/20/20 15:54 Hemoglobin C Crystals Not Reportable 06/20/20 15:54 Schistocytes Not Reportable 06/20/20 15:54 Malaria parasites Not Reportable 06/20/20 15:54 Aden Bodies Not Reportable 06/20/20 15:54 Hem Pathologist Commnt No 06/20/20 15:54 VBG pH 7.229 (7.320-7.420) L 06/20/20 15:54 Sodium 143 mmol/L (137-145) 06/21/20 04:25 Potassium 4.0 mmol/L (3.6-5.0) 06/21/20 04:25 Chloride 108.9 mmol/L (98-107) H 06/21/20 04:25 Carbon Dioxide 19 mmol/L (22-30) L 06/21/20 04:25 Anion Gap 19 mmol/L 06/21/20 04:25 BUN 54 mg/dL (7-17) H 06/21/20 04:25 Creatinine 3.2 mg/dL (0.6-1.2) H 06/21/20 04:25 Estimated GFR 15 ml/min 06/21/20 04:25 BUN/Creatinine Ratio 17 % 06/21/20 04:25 Glucose 193 mg/dL (65-100) H 06/21/20 04:25 POC Glucose 125 mg/dL (70-105) H 06/21/20 08:29 Hemoglobin A1c 9.3 % (4-6) H 06/20/20 23:30 Ketones Quantitative Small (Negative) 06/20/20 15:54 Calcium 8.6 mg/dL (8.4-10.2) 06/21/20 04:25 Phosphorus 1.40 mg/dL (2.5-4.5) L D 06/20/20 23:30 Magnesium 2.10 mg/dL (1.7-2.3) 06/20/20 23:30 Total Bilirubin 0.40 mg/dL (0.1-1.2) 06/20/20 15:54 AST 24 units/L (5-40) 06/20/20 15:54 ALT 14 units/L (7-56) 06/20/20 15:54 Alkaline Phosphatase 64 units/L (35-129) 06/20/20 15:54 Ammonia 51.0 umol/L (25-60) 06/20/20 15:54 Troponin T 0.025 ng/mL (0.00-0.029) 06/20/20 15:54 Total Protein 6.5 g/dL (6.3-8.2) 06/20/20 15:54 Albumin 3.5 g/dL (3.9-5) L 06/20/20 15:54 Albumin/Globulin Ratio 1.2 % 06/20/20 15:54 TSH 0.349 mlU/mL (0.270-4.200) 06/20/20 15:54 Urine Color Yellow (Yellow) 06/21/20 01:50 Urine Turbidity Cloudy (Clear) 06/21/20 01:50 Urine pH 5.0 (5.0-7.0) 06/21/20 01:50 Ur Specific [place] 1.013 (1.003-1.030) 06/21/20 01:50 Urine Protein <15 mg/dl mg/dL (Negative) 06/21/20 01:50 Urine Glucose (UA) >=500 mg/dL (Negative) 06/21/20 01:50 Urine Ketones 20 mg/dL (Negative) 06/21/20 01:50 Urine Blood Neg (Negative) 06/21/20 01:50 Urine Nitrite Neg (Negative) 06/21/20 01:50 Urine Bilirubin Neg (Negative) 06/21/20 01:50 Urine Urobilinogen < 2.0 mg/dL (<2.0) 06/21/20 01:50 Ur Leukocyte Esterase Neg (Negative) 06/21/20 01:50 Urine WBC (Auto) 4.0 /HPF (0.0-6.0) 06/21/20 01:50 Urine RBC (Auto) 7.0 /HPF (0.0-6.0) 06/21/20 01:50 U Epithel Cells (Auto) 21.0 /HPF (0-13.0) H 06/21/20 01:50 Urine Mucus Few /HPF 06/21/20 01:50 Urine Creatinine 74.0 mg/dL (0.1-20.0) H 06/21/20 01:50 Urine Microalbumin 4.0 mg/dL (0.1-34.0) 06/21/20 01:50 Microalb/Creat Ratio 54.0 ug/mg 06/21/20 01:50 Urine Opiates Screen Presumptive negative 06/21/20 01:50 Urine Methadone Screen Presumptive negative 06/21/20 01:50 Ur Barbiturates Screen Presumptive negative 06/21/20 01:50 Ur Phencyclidine Scrn Presumptive negative 06/21/20 01:50 Ur Amphetamines Screen Presumptive negative 06/21/20 01:50 U Benzodiazepines Scrn Presumptive negative 06/21/20 01:50 Urine Cocaine Screen Presumptive negative 06/21/20 01:50 U Marijuana (THC) Screen Presumptive positive 06/21/20 01:50 Drugs of Abuse Note Disclamer 06/21/20 01:50 Plasma/Serum Alcohol < 0.01 % (0-0.07) 06/20/20 15:54 [place]/IV: Voiding Method External Female Catheter IV Catheter Type [Right Peripheral IV Forearm] Active Medications - Current Medications Current Medications: Generic Name Dose Route Start Last Admin Trade Name Freq PRN Reason Stop Dose Admin Acetaminophen 650 mg 06/20/20 22:20 Tylenol PO Q4H PRN Pain MILD(1-3)/Fever >100.5/ELY Amlodipine Besylate 10 mg 06/21/20 10:00 Amlodipine PO QDAY GHASASN Carvedilol 6.25 mg 06/21/20 08:00 Coreg PO QDAY@0800 GHASSAN Dextrose 0 ml 06/20/20 22:25 D50w (25gm) Syringe IV Q30MIN PRN Hypoglycemia Protocol Famotidine 20 mg 06/20/20 23:00 06/21/20 00:47 Pepcid IV Not Given DAILY GHASSAN Hydralazine HCl 50 mg 06/20/20 23:00 06/21/20 06:20 Apresoline PO Not Given Q8HR GHASSAN Hydromorphone HCl 0.5 mg 06/20/20 22:20 Dilaudid IV Q3H PRN Pain , Severe (7-10) Insulin Human Regular 100 100 mls @ 1 mls/hr 06/20/20 23:00 06/21/20 07:27 units/ Sodium Chloride IV 1.5 units/hr TITR GHASSAN 1.5 mls/hr Titration Protocol 1 UNITS/HR Ceftriaxone Sodium 2 gm in 100 mls @ 200 mls/hr 06/21/20 10:00 Rocephin/Ns 2 Gm/100 Ml IV Q24HR GHASSAN Protocol Sodium Chloride 1,000 mls @ 150 mls/hr 06/20/20 23:00 06/20/20 23:15 Nacl 0.9% 1000 Ml IV 150 mls/hr DIRECT GHASSAN Administration Potassium Chloride/Dextrose/Sod Cl 20 meq in 1,000 mls @ 125 mls/hr 06/21/20 07:00 06/21/20 06:56 D5w/0.45% Nacl/Kcl 20 Meq IV 125 mls/hr DIRECT GHASSAN Administration Metoclopramide HCl 5 mg 06/20/20 22:27 Reglan IV Q6H PRN Nausea And Vomiting Morphine Sulfate 2 mg 06/20/20 22:20 Morphine IV Q4H PRN Pain, Moderate (4-6) Ondansetron HCl 4 mg 06/20/20 22:20 Zofran IV Q3H PRN Nausea And Vomiting Sodium Chloride 10 ml 06/21/20 10:00 Sodium Chloride Flush Syringe 10 Ml IV BID GHASSAN Sodium Chloride 10 ml 06/20/20 22:20 06/20/20 23:10 Sodium Chloride Flush Syringe 10 Ml IV 10 ml PRN PRN Administration LINE FLUSH
[2020-06-21] MEDS: cefTRIAXone/NS 2 GM/100 ML 2 GM/100 ML BAG IV SCH (09:19)
--- NOTE | 2020-06-21 09:51 | Consultation ---
History of Present Illness - Reason for Consult Consult date: 06/21/20 acute renal failure, chronic renal failure - History of Present Illness The patient is a 50 YO female with history significant for DM type 1 on Insulin pump, Hypertension, CVA, Iron deficiency anemia, Breast cancer and CKD stage 3 who presented to [facility] ED 06/20 with AMS. Patient couldn't remember the events and information was obtained from prior documentation. SHe admits to [facility]. Pt was found to have a blood sugar greater than 500. She was started on IV fluid enroute. The patient was here about 1 month ago with similar presentation and was admitted with DKA, hyperkalemia, among other diagnoses. Initial BP was 81/33. Labs significant for Creat 3.3, BUN 48, Sodium 133, K 6.3, bicarb 11, Glucose 730 and WBC 26.7. Patient was on IV Insulin at the time of eval. Admitted to ICU for treatment of DKA, ?Sepsis and ISSAC. Nephrology was consulted for further evaluation. Past History Past Medical History: other (See HPI.) Medications and Allergies Allergies Allergy/AdvReac Type Severity Reaction Status Date / Time codeine Allergy Itching Verified 06/20/20 16:09 Home Medications Medication Instructions Recorded Confirmed Last Taken Type amLODIPine 10 mg PO QDAY #30 tablet 05/03/20 06/21/20 Unknown Rx carvediloL [Coreg] 6.25 mg PO QDAY@0800 #60 tablet 05/03/20 06/21/20 Unknown Rx hydrALAZINE [Apresoline TAB] 50 mg PO Q8HR #180 tablet 05/03/20 06/21/20 Unknown Rx Levothyroxine [Synthroid] 125 mcg PO DAILY 06/21/20 06/21/20 Unknown History valACYclovir [Valtrex] 500 mg PO DAILY 06/21/20 06/21/20 Unknown History Active Meds: Active Medications Acetaminophen (Tylenol) 650 mg PO Q4H PRN PRN Reason: Pain MILD(1-3)/Fever >100.5/ELY Amlodipine Besylate (Amlodipine) 10 mg PO QDAY GHASSAN Carvedilol (Coreg) 6.25 mg PO QDAY@0800 [facility] Last Admin: 06/21/20 08:59 Dose: Not Given Documented by: Dextrose (D50w (25gm) Syringe) 0 ml IV Q30MIN PRN; Protocol PRN Reason: Hypoglycemia Famotidine (Pepcid) 20 mg IV DAILY [facility] Last Admin: 06/21/20 09:19 Dose: 20 mg Documented by: Hydralazine HCl (Apresoline) 50 mg PO Q8HR GHASSAN Last Admin: 06/21/20 06:20 Dose: Not Given Documented by: Hydromorphone HCl (Dilaudid) 0.5 mg IV Q3H PRN PRN Reason: Pain , Severe (7-10) Insulin Human Regular 100 (units/ Sodium Chloride) 100 mls @ 1 mls/hr IV TITR GHASSAN; Protocol Last Titration: 06/21/20 08:55 Dose: 2 units/hr, 2 mls/hr Documented by: Ceftriaxone Sodium (Rocephin/Ns 2 Gm/100 Ml) 2 gm in 100 mls @ 200 mls/hr IV Q24HR GHASSAN; Protocol Last Admin: 06/21/20 09:19 Dose: 200 mls/hr Documented by: Sodium Chloride (Nacl 0.9% 1000 Ml) 1,000 mls @ 150 mls/hr IV DIRECT GHASSAN Last Admin: 06/20/20 23:15 Dose: 150 mls/hr Documented by: Potassium Chloride/Dextrose/Sod Cl (D5w/0.45% Nacl/Kcl 20 Meq) 20 meq in 1,000 mls @ 125 mls/hr IV DIRECT GHASSAN Last Admin: 06/21/20 06:56 Dose: 125 mls/hr Documented by: Metoclopramide HCl (Reglan) 5 mg IV Q6H PRN PRN Reason: Nausea And Vomiting Morphine Sulfate (Morphine) 2 mg IV Q4H PRN PRN Reason: Pain, Moderate (4-6) Ondansetron HCl (Zofran) 4 mg IV Q3H PRN PRN Reason: Nausea And Vomiting Sodium Chloride (Sodium Chloride Flush Syringe 10 Ml) 10 ml IV BID GHASSAN Last Admin: 06/21/20 09:20 Dose: 10 ml Documented by: Sodium Chloride (Sodium Chloride Flush Syringe 10 Ml) 10 ml IV PRN PRN PRN Reason: LINE FLUSH Last Admin: 06/20/20 23:10 Dose: 10 ml Documented by: Review of Systems ROS unobtainable: due to mental status Exam - Vital Signs Vital signs: Vital Signs Pulse Resp Pulse Ox 110 H 15 80 L 10/23/20 15:37 06/20/20 15:37 06/20/20 15:37 Results - Lab Results 06/20/20 15:54 06/21/20 10:26 Most recent lab results Calcium 8.6 mg/dL (8.4-10.2) 06/21/20 04:25 Phosphorus 1.40 mg/dL (2.5-4.5) L D 06/20/20 23:30 Magnesium 2.10 mg/dL (1.7-2.3) 06/20/20 23:30 Urine Creatinine 74.0 mg/dL (0.1-20.0) H 06/21/20 01:50 Assessment and Plan 1. Acute kidney injury: Vasomotor ISSAC superimposed on CKD in the setting of volume depletion, shock and DKA. Monitor renal function. Creatinine level remains the same. Renal prognosis is guarded. Avoid nephrotoxic agents. Meds dosage based on GFR. 2. FEN: Anion-gap metabolic acidosis, 2/2 to DKA, monitor. Hyperkalemia, monitor. Monitor lytes and volume status. 3. Hypotension: BP is better. Monitor BP. 4. DKA: IV Insulin and IV fluids. Monitor glucose levels. 5. Suspected sepsis, POA: Continue abx. Follow cultures. 6. Acute metabolic encephalopathy, POA: Improving. - Subjective: Patient was seen and examined at the bedside. - General Appearance General appearance: well-developed, appears stated age, not in distress HEENT: ATNC, pupils appears equal Neck: Trachea midline Respiratory: appears ctab Cardiology: regular, S1S2, no murmur Gastrointestinal: soft, not tender, not distended Integumentary: no obvious rash Neurologic: alert, slight confusion, able to move extremities Ext: no edema noted
[2020-06-21] MEDS ORDERED: amLODIPine 10 MG TAB PO SCH (10:00)
[2020-06-21 11:26] LABS: Calcium 8.8 mg/dL (8.4-10.2)
[2020-06-21] MEDS ORDERED: DEXTROSE 50% IN WATER (25GM) 50 ML SYRINGE IV PRN (13:00)
--- NOTE | 2020-06-21 13:10 | Consultation ---
History of Present Illness - Reason for Consult Consult date: 06/21/20 Hyperglycemia and insulin drip. Requesting physician: MIGUE MCGILL - History of Present Illness 50 y/o female with known diabetes, per patient has insulin pump but not able to tell me much about it admitted with elevated blood sugars. Currently still on Insulin drip but Anion Gap has closed. In renal failure as well. Renal consulted. Patient is awake and alert and wants food. Past History Past Medical History: diabetes, hypertension Medications and Allergies Allergies Allergy/AdvReac Type Severity Reaction Status Date / Time codeine Allergy Itching Verified 06/20/20 16:09 Home Medications Medication Instructions Recorded Confirmed Last Taken Type amLODIPine 10 mg PO QDAY #30 tablet 05/03/20 Unknown Rx carvediloL [Coreg] 6.25 mg PO QDAY@0800 #60 tablet 05/03/20 Unknown Rx hydrALAZINE [Apresoline TAB] 50 mg PO Q8HR #180 tablet 05/03/20 Unknown Rx levoFLOXacin [Levaquin TAB] 500 mg PO QDAY #4 tablet 05/03/20 Unknown Rx Active Meds: Active Medications Acetaminophen (Tylenol) 650 mg PO Q4H PRN PRN Reason: Pain MILD(1-3)/Fever >100.5/ELY Dextrose (D50w (25gm) Syringe) 0 ml IV Q30MIN PRN; Protocol PRN Reason: Hypoglycemia Dextrose (D50w (25gm) Syringe) 50 ml IV Q30MIN PRN; Protocol PRN Reason: Hypoglycemia Famotidine (Pepcid) 20 mg IV DAILY GHASSAN Last Admin: 06/21/20 09:19 Dose: 20 mg Documented by: Ceftriaxone Sodium (Rocephin/Ns 2 Gm/100 Ml) 2 gm in 100 mls @ 200 mls/hr IV Q24HR GHASSAN; Protocol Last Admin: 06/21/20 09:19 Dose: 200 mls/hr Documented by: Sodium Chloride (Nacl 0.9% 1000 Ml) 1,000 mls @ 150 mls/hr IV DIRECT GHASSAN Last Admin: 06/20/20 23:15 Dose: 150 mls/hr Documented by: Potassium Chloride/Dextrose/Sod Cl (D5w/0.45% Nacl/Kcl 20 Meq) 20 meq in 1,000 mls @ 125 mls/hr IV DIRECT GHASSAN Last Admin: 06/21/20 06:56 Dose: 125 mls/hr Documented by: Insulin Human NPH (Humulin N) 10 unit SUB-Q BIDDIAB GHASSAN Insulin Human Regular (Humulin R) 0 unit SUB-Q Q6H GHASSAN; Protocol Lactated Ringer's (Lactated Ringers) 1,000 ml IV DIRECT GHASSAN Lactated Ringer's (Lactated Ringers) 1,000 ml IV DIRECT GHASSAN Metoclopramide HCl (Reglan) 5 mg IV Q6H PRN PRN Reason: Nausea And Vomiting Ondansetron HCl (Zofran) 4 mg IV Q3H PRN PRN Reason: Nausea And Vomiting Sodium Chloride (Sodium Chloride Flush Syringe 10 Ml) 10 ml IV BID GHASSAN Last Admin: 06/21/20 09:20 Dose: 10 ml Documented by: Sodium Chloride (Sodium Chloride Flush Syringe 10 Ml) 10 ml IV PRN PRN PRN Reason: LINE FLUSH Last Admin: 06/20/20 23:10 Dose: 10 ml Documented by: Review of Systems All systems: negative Exam - Constitutional Vitals: Temp Pulse Resp BP Pulse Ox 98.4 F 93 H 15 82/40 100 06/21/20 03:22 06/21/20 08:59 06/21/20 06:51 06/21/20 08:59 06/21/20 06:51 General appearance: Present: no acute distress, well-nourished - EENT Eyes: Present: PERRL, EOM intact ENT: hearing intact - Neck Neck: Present: supple, normal ROM - Respiratory Respiratory effort: normal Respiratory: bilateral: CTA - Cardiovascular Rhythm: regular Heart Sounds: Present: S1 & S2 Results - Labs CBC & Chem 7: 06/20/20 15:54 06/21/20 10:26 Labs: Abnormal lab results 06/20/20 06/20/20 06/20/20 Range/Units 15:48 15:54 15:54 WBC 26.7 H (4.5-11.0) K/mm3 RBC 3.22 L (3.65-5.03) M/mm3 MCV 111 H (79-97) fl MCH 36 H (28-32) pg Seg Neuts % (Manual) 84.0 H (40.0-70.0) % Lymphocytes % (Manual) 10.0 L (13.4-35.0) % Seg Neutrophils # Man 22.4 H (1.8-7.7) K/mm3 Monocytes # (Manual) 1.6 H (0.0-0.8) K/mm3 VBG pH (7.320-7.420) Sodium 133 L (137-145) mmol/L Potassium 6.3 H* (3.6-5.0) mmol/L Chloride 90.8 L (98-107) mmol/L Carbon Dioxide 11 L (22-30) mmol/L BUN 48 H (7-17) mg/dL Creatinine 3.3 H (0.6-1.2) mg/dL Glucose 730 H* (65-100) mg/dL POC Glucose > 500 H (70-105) mg/dL Hemoglobin A1c (4-6) % Phosphorus (2.5-4.5) mg/dL Albumin 3.5 L (3.9-5) g/dL U Epithel Cells (Auto) (0-13.0) /HPF Urine Creatinine (0.1-20.0) mg/dL 06/20/20 06/20/20 06/20/20 Range/Units 15:54 18:04 19:10 WBC (4.5-11.0) K/mm3 RBC (3.65-5.03) M/mm3 MCV (79-97) fl MCH (28-32) pg Seg Neuts % (Manual) (40.0-70.0) % Lymphocytes % (Manual) (13.4-35.0) % Seg Neutrophils # Man (1.8-7.7) K/mm3 Monocytes # (Manual) (0.0-0.8) K/mm3 VBG pH 7.229 L (7.320-7.420) Sodium (137-145) mmol/L Potassium (3.6-5.0) mmol/L Chloride (98-107) mmol/L Carbon Dioxide (22-30) mmol/L BUN (7-17) mg/dL Creatinine (0.6-1.2) mg/dL Glucose (65-100) mg/dL POC Glucose > 500 H (70-105) mg/dL Hemoglobin A1c (4-6) % Phosphorus 6.50 H (2.5-4.5) mg/dL Albumin (3.9-5) g/dL U Epithel Cells (Auto) (0-13.0) /HPF Urine Creatinine (0.1-20.0) mg/dL 06/20/20 06/20/20 06/20/20 Range/Units 19:10 19:56 21:22 WBC (4.5-11.0) K/mm3 RBC (3.65-5.03) M/mm3 MCV (79-97) fl MCH (28-32) pg Seg Neuts % (Manual) (40.0-70.0) % Lymphocytes % (Manual) (13.4-35.0) % Seg Neutrophils # Man (1.8-7.7) K/mm3 Monocytes # (Manual) (0.0-0.8) K/mm3 VBG pH (7.320-7.420) Sodium 136 L (137-145) mmol/L Potassium 5.9 H (3.6-5.0) mmol/L Chloride 91.8 L (98-107) mmol/L Carbon Dioxide 7 L* (22-30) mmol/L BUN 48 H (7-17) mg/dL Creatinine 3.2 H (0.6-1.2) mg/dL Glucose 687 H* (65-100) mg/dL POC Glucose > 500 H > 500 H (70-105) mg/dL Hemoglobin A1c (4-6) % Phosphorus (2.5-4.5) mg/dL Albumin (3.9-5) g/dL U Epithel Cells (Auto) (0-13.0) /HPF Urine Creatinine (0.1-20.0) mg/dL 06/20/20 06/20/20 06/20/20 Range/Units 21:30 22:40 23:30 WBC (4.5-11.0) K/mm3 RBC (3.65-5.03) M/mm3 MCV (79-97) fl MCH (28-32) pg Seg Neuts % (Manual) (40.0-70.0) % Lymphocytes % (Manual) (13.4-35.0) % Seg Neutrophils # Man (1.8-7.7) K/mm3 Monocytes # (Manual) (0.0-0.8) K/mm3 VBG pH (7.320-7.420) Sodium (137-145) mmol/L Potassium (3.6-5.0) mmol/L Chloride 97.5 L (98-107) mmol/L Carbon Dioxide 11 L (22-30) mmol/L BUN 49 H (7-17) mg/dL Creatinine 3.3 H (0.6-1.2) mg/dL Glucose 593 H* (65-100) mg/dL POC Glucose > 500 H (70-105) mg/dL Hemoglobin A1c 9.3 H (4-6) % Phosphorus (2.5-4.5) mg/dL Albumin (3.9-5) g/dL U Epithel Cells (Auto) (0-13.0) /HPF Urine Creatinine (0.1-20.0) mg/dL 06/20/20 06/20/20 06/21/20 Range/Units 23:30 23:30 00:34 WBC (4.5-11.0) K/mm3 RBC (3.65-5.03) M/mm3 MCV (79-97) fl MCH (28-32) pg Seg Neuts % (Manual) (40.0-70.0) % Lymphocytes % (Manual) (13.4-35.0) % Seg Neutrophils # Man (1.8-7.7) K/mm3 Monocytes # (Manual) (0.0-0.8) K/mm3 VBG pH (7.320-7.420) Sodium (137-145) mmol/L Potassium (3.6-5.0) mmol/L Chloride (98-107) mmol/L Carbon Dioxide 17 L (22-30) mmol/L BUN 51 H (7-17) mg/dL Creatinine 3.4 H (0.6-1.2) mg/dL Glucose 447 H (65-100) mg/dL POC Glucose 382 H (70-105) mg/dL Hemoglobin A1c (4-6) % Phosphorus 1.40 L D (2.5-4.5) mg/dL Albumin (3.9-5) g/dL U Epithel Cells (Auto) (0-13.0) /HPF Urine Creatinine (0.1-20.0) mg/dL 06/21/20 06/21/20 06/21/20 Range/Units 01:50 01:50 01:54 WBC (4.5-11.0) K/mm3 RBC (3.65-5.03) M/mm3 MCV (79-97) fl MCH (28-32) pg Seg Neuts % (Manual) (40.0-70.0) % Lymphocytes % (Manual) (13.4-35.0) % Seg Neutrophils # Man (1.8-7.7) K/mm3 Monocytes # (Manual) (0.0-0.8) K/mm3 VBG pH (7.320-7.420) Sodium (137-145) mmol/L Potassium (3.6-5.0) mmol/L Chloride (98-107) mmol/L Carbon Dioxide (22-30) mmol/L BUN (7-17) mg/dL Creatinine (0.6-1.2) mg/dL Glucose (65-100) mg/dL POC Glucose 347 H (70-105) mg/dL Hemoglobin A1c (4-6) % Phosphorus (2.5-4.5) mg/dL Albumin (3.9-5) g/dL U Epithel Cells (Auto) 21.0 H (0-13.0) /HPF Urine Creatinine 74.0 H (0.1-20.0) mg/dL 06/21/20 06/21/20 06/21/20 Range/Units 02:53 03:52 04:25 WBC (4.5-11.0) K/mm3 RBC (3.65-5.03) M/mm3 MCV (79-97) fl MCH (28-32) pg Seg Neuts % (Manual) (40.0-70.0) % Lymphocytes % (Manual) (13.4-35.0) % Seg Neutrophils # Man (1.8-7.7) K/mm3 Monocytes # (Manual) (0.0-0.8) K/mm3 VBG pH (7.320-7.420) Sodium (137-145) mmol/L Potassium (3.6-5.0) mmol/L Chloride 108.9 H (98-107) mmol/L Carbon Dioxide 19 L (22-30) mmol/L BUN 54 H (7-17) mg/dL Creatinine 3.2 H (0.6-1.2) mg/dL Glucose 193 H (65-100) mg/dL POC Glucose 305 H 275 H (70-105) mg/dL Hemoglobin A1c (4-6) % Phosphorus (2.5-4.5) mg/dL Albumin (3.9-5) g/dL U Epithel Cells (Auto) (0-13.0) /HPF Urine Creatinine (0.1-20.0) mg/dL 06/21/20 06/21/20 06/21/20 Range/Units 05:36 07:35 08:29 WBC (4.5-11.0) K/mm3 RBC (3.65-5.03) M/mm3 MCV (79-97) fl MCH (28-32) pg Seg Neuts % (Manual) (40.0-70.0) % Lymphocytes % (Manual) (13.4-35.0) % Seg Neutrophils # Man (1.8-7.7) K/mm3 Monocytes # (Manual) (0.0-0.8) K/mm3 VBG pH (7.320-7.420) Sodium (137-145) mmol/L Potassium (3.6-5.0) mmol/L Chloride (98-107) mmol/L Carbon Dioxide (22-30) mmol/L BUN (7-17) mg/dL Creatinine (0.6-1.2) mg/dL Glucose (65-100) mg/dL POC Glucose 189 H 113 H 125 H (70-105) mg/dL Hemoglobin A1c (4-6) % Phosphorus (2.5-4.5) mg/dL Albumin (3.9-5) g/dL U Epithel Cells (Auto) (0-13.0) /HPF Urine Creatinine (0.1-20.0) mg/dL 06/21/20 06/21/20 06/21/20 Range/Units 09:06 10:15 10:26 WBC (4.5-11.0) K/mm3 RBC (3.65-5.03) M/mm3 MCV (79-97) fl MCH (28-32) pg Seg Neuts % (Manual) (40.0-70.0) % Lymphocytes % (Manual) (13.4-35.0) % Seg Neutrophils # Man (1.8-7.7) K/mm3 Monocytes # (Manual) (0.0-0.8) K/mm3 VBG pH (7.320-7.420) Sodium (137-145) mmol/L Potassium (3.6-5.0) mmol/L Chloride (98-107) mmol/L Carbon Dioxide (22-30) mmol/L BUN 53 H (7-17) mg/dL Creatinine 2.9 H (0.6-1.2) mg/dL Glucose 139 H (65-100) mg/dL POC Glucose 141 H 159 H (70-105) mg/dL Hemoglobin A1c (4-6) % Phosphorus (2.5-4.5) mg/dL Albumin (3.9-5) g/dL U Epithel Cells (Auto) (0-13.0) /HPF Urine Creatinine (0.1-20.0) mg/dL 06/21/20 06/21/20 Range/Units 11:17 12:11 WBC (4.5-11.0) K/mm3 RBC (3.65-5.03) M/mm3 MCV (79-97) fl MCH (28-32) pg Seg Neuts % (Manual) (40.0-70.0) % Lymphocytes % (Manual) (13.4-35.0) % Seg Neutrophils # Man (1.8-7.7) K/mm3 Monocytes # (Manual) (0.0-0.8) K/mm3 VBG pH (7.320-7.420) Sodium (137-145) mmol/L Potassium (3.6-5.0) mmol/L Chloride (98-107) mmol/L Carbon Dioxide (22-30) mmol/L BUN (7-17) mg/dL Creatinine (0.6-1.2) mg/dL Glucose (65-100) mg/dL POC Glucose 157 H 124 H (70-105) mg/dL Hemoglobin A1c (4-6) % Phosphorus (2.5-4.5) mg/dL Albumin (3.9-5) g/dL U Epithel Cells (Auto) (0-13.0) /HPF Urine Creatinine (0.1-20.0) mg/dL - Imaging and Cardiology Chest x-ray: image reviewed (Clear CXR) Assessment and Plan 50 y/o female with known diabetes, admitted with dKA and now hypotension 1. Stop insulin drip 2. Started NPH 10 BID and placed on moderate dose sliding scale 3. FSBS q6 hours 4. In regards to hypotension, Cuff currently on Forearm, will readjust. ordered 2 boluses of lactacted ringers. Patient may be having BP shifts from dropping blood sugar. Per patient very dehydrated. Stopped all BP meds 5. COntinue ICU monitoring until BP issues resolve. CCT 31 minutes.
[2020-06-21] MEDS ORDERED: LACTATED RINGERS 1000 ML IV SOLN IV SCH (14:00)
--- NOTE | 2020-06-21 14:13 | Event Note ---
Date: 06/21/20 Patient's BMP reviewed, anion gap closed, acidosis corrected Patient is tolerating oral nutrition, add ADA diet DC insulin drip, transition to long-acting Novolin Change IV fluids normal saline, diabetic education, nutrition education If patient tolerates food and if sugars are reasonable level Patient may be transferred out of ICU in 1 to 2 hours And possible discharge in 1 to 2 days
[2020-06-21] MEDS: LACTATED RINGERS 1000 ML IV SOLN IV SCH ×2 (14:28→15:39)
[2020-06-21] MEDS: INSULIN REGULAR, HUMAN 100 UNIT/ML 3ML VIAL SUB-Q SCH ×3 (17:14→23:33)
[2020-06-21] MEDS: INSULIN NPH, HUMAN 100 UNIT/1 ML SUB-Q SCH (17:15)
[2020-06-21] MEDS: SODIUM CHLORIDE 0.9% 1000 ML 1,000 ML IV SCH (17:27)
[2020-06-21 23:34] LABS: Calcium 8.1 mg/dL (8.4-10.2)
[2020-06-22] MEDS: SODIUM CHLORIDE 0.9% 1000 ML 1,000 ML IV SCH ×2 (01:18→18:07)
[2020-06-22] MEDS: INSULIN REGULAR, HUMAN 100 UNIT/ML 3ML VIAL SUB-Q SCH (05:54)
[2020-06-22 09:08] LABS: Calcium 8.1 mg/dL (8.4-10.2)
[2020-06-22] MEDS: LACTATED RINGERS 1000 ML IV SOLN IV SCH (09:58)
[2020-06-22] MEDS: cefTRIAXone/NS 2 GM/100 ML 2 GM/100 ML BAG IV SCH (10:01)
[2020-06-22] MEDS: FAMOTIDINE 20 MG/2 ML INJ IV SCH (10:02)
[2020-06-22] MEDS: INSULIN NPH, HUMAN 100 UNIT/1 ML SUB-Q SCH (10:02)
--- NOTE | 2020-06-22 10:38 | Progress Note ---
Assessment and Plan Assessment and plan: --Acute metabolic encephalopathy Current Visit: Yes Status: Acute Plan to address problem: Multifactorial .secondary to DKA, severe acidosis Underlying electrolyte abnormalities, acute on chronic kidney disease Treat underlying cause, closely monitor --Type 2 diabetes mellitus; Current Visit: Yes Status: Acute Plan to address problem: Accu-Chek, sliding scale coverage, ADA diet Long-acting insulin Novolin 70/30 Diabetic education, nutrition education --s/p DKA (diabetic ketoacidoses) Current Visit: Yes Status: Acute Plan to address problem: s/p DKA pathway per protocol, Diabetic education, nutrition education home health nurse for disease monitoring at discharge. HbA1c 9.3 -- Hyperkalemia; present on admission Current Visit: Yes Status: Acute Plan to address problem: Resolved .closely monitor electrolytes and correct as needed --SIRS; Current Visit: Yes Status: Acute Plan to address problem: Tachycardia , leukocytosis WBC 26,000 Follow cultures, empiric Rocephin Urinalysis and urine cultures ordered --Acute on CKD 3 (chronic kidney disease) Current Visit: Yes Status: Acute Plan to address problem: Renal function gradually improving, Cr trending down due to diabetic nephropathy , dehydration prerenal azotemia As well as vasomotor nephropathy, avoid nephrotoxins nephrology following --Dyslipidemia ; Current Visit: Yes Status: Chronic Plan to address problem: Continue statins, low-cholesterol diet --DVT prophylaxis Current Visit: Yes Status: Acute Plan to address problem: On heparin and GI prophylaxis Patient's symptoms significantly improved Ambulate as tolerated Possible discharge in 1 to 2 days if stable DC planning; case management, possible home health nurse For disease monitoring at discharge History Interval history: I have seen and examined the patient at the bedside Patient's chart and medications reviewed Patient's blood sugars are reasonable control Renal function slightly improved Alert awake oriented No new complaints Vital signs noted Hospitalist Physical - Constitutional Vitals: Temp Pulse Resp BP Pulse Ox 98.5 F 87 16 154/75 100 06/22/20 05:11 06/22/20 05:11 06/22/20 05:11 06/22/20 05:11 06/22/20 05:11 General appearance: Present: no acute distress, well-nourished - EENT Eyes: Present: PERRL, EOM intact - Neck Neck: Present: supple, normal ROM - Respiratory Respiratory effort: normal Respiratory: bilateral: diminished, negative: rales, rhonchi, wheezing - Cardiovascular Rhythm: regular Heart Sounds: Present: S1 & S2 - Extremities Extremities: no ischemia, No edema - Abdominal General gastrointestinal: soft, non-tender, non-distended, normal bowel sounds - Integumentary Integumentary: Present: clear, warm - Psychiatric Psychiatric: appropriate mood/affect, cooperative - Neurologic Neurologic: moves all extremities HEART Score - HEART Score Troponin: Troponin T 0.025 ng/mL (0.00-0.029) 06/20/20 15:54 Results - Labs CBC & Chem 7: 06/20/20 15:54 06/22/20 08:25 Labs: Laboratory Last Values WBC 26.7 K/mm3 (4.5-11.0) H 06/20/20 15:54 RBC 3.22 M/mm3 (3.65-5.03) L 06/20/20 15:54 Hgb 11.4 gm/dl (10.1-14.3) 06/20/20 15:54 Hct 35.6 % (30.3-42.9) 06/20/20 15:54 MCV 111 fl (79-97) H 06/20/20 15:54 MCH 36 pg (28-32) H 06/20/20 15:54 MCHC 32 % (30-34) 06/20/20 15:54 RDW 15.1 % (13.2-15.2) 06/20/20 15:54 Plt Count 244 K/mm3 (140-440) 06/20/20 15:54 Add Manual Diff Complete 06/20/20 15:54 Total Counted 100 06/20/20 15:54 Seg Neuts % (Manual) 84.0 % (40.0-70.0) H 06/20/20 15:54 Band Neutrophils % 0 % 06/20/20 15:54 Lymphocytes % (Manual) 10.0 % (13.4-35.0) L 06/20/20 15:54 Reactive Lymphs % (Man) 0 % 06/20/20 15:54 Monocytes % (Manual) 6.0 % (0.0-7.3) 06/20/20 15:54 Eosinophils % (Manual) 0 % (0.0-4.3) 06/20/20 15:54 Basophils % (Manual) 0 % (0.0-1.8) 06/20/20 15:54 Metamyelocytes % 0 % 06/20/20 15:54 Myelocytes % 0 % 06/20/20 15:54 Promyelocytes % 0 % 06/20/20 15:54 Blast Cells % 0 % 06/20/20 15:54 Nucleated RBC % Not Reportable 06/20/20 15:54 Seg Neutrophils # Man 22.4 K/mm3 (1.8-7.7) H 06/20/20 15:54 Band Neutrophils # 0.0 K/mm3 06/20/20 15:54 Lymphocytes # (Manual) 2.7 K/mm3 (1.2-5.4) 06/20/20 15:54 Abs React Lymphs (Man) 0.0 K/mm3 06/20/20 15:54 Monocytes # (Manual) 1.6 K/mm3 (0.0-0.8) H 06/20/20 15:54 Eosinophils # (Manual) 0.0 K/mm3 (0.0-0.4) 06/20/20 15:54 Basophils # (Manual) 0.0 K/mm3 (0.0-0.1) 06/20/20 15:54 Metamyelocytes # 0.0 K/mm3 06/20/20 15:54 Myelocytes # 0.0 K/mm3 06/20/20 15:54 Promyelocytes # 0.0 K/mm3 06/20/20 15:54 Blast Cells # 0.0 K/mm3 06/20/20 15:54 WBC Morphology Not Reportable 06/20/20 15:54 Hypersegmented Neuts Not Reportable 06/20/20 15:54 Hyposegmented Neuts Not Reportable 06/20/20 15:54 Hypogranular Neuts Not Reportable 06/20/20 15:54 Smudge Cells Not Reportable 06/20/20 15:54 Toxic Granulation Not Reportable 06/20/20 15:54 Toxic Vacuolation Not Reportable 06/20/20 15:54 Dohle Bodies Not Reportable 06/20/20 15:54 Pelger-Huet Anomaly Not Reportable 06/20/20 15:54 Mekhi Rods Not Reportable 06/20/20 15:54 Platelet Estimate Not Reportable 06/20/20 15:54 Clumped Platelets Not Reportable 06/20/20 15:54 Plt Clumps, EDTA Not Reportable 06/20/20 15:54 Large Platelets Not Reportable 06/20/20 15:54 Giant Platelets Not Reportable 06/20/20 15:54 Platelet Satelliting Not Reportable 06/20/20 15:54 Plt Morphology Comment Not Reportable 06/20/20 15:54 RBC Morphology Normal 06/20/20 15:54 Dimorphic RBCs Not Reportable 06/20/20 15:54 Polychromasia Not Reportable 06/20/20 15:54 Hypochromasia Not Reportable 06/20/20 15:54 Poikilocytosis Not Reportable 06/20/20 15:54 Anisocytosis Not Reportable 06/20/20 15:54 Microcytosis Not Reportable 06/20/20 15:54 Macrocytosis Not Reportable 06/20/20 15:54 Spherocytes Not Reportable 06/20/20 15:54 Pappenheimer Bodies Not Reportable 06/20/20 15:54 Sickle Cells Not Reportable 06/20/20 15:54 Target Cells Not Reportable 06/20/20 15:54 Tear Drop Cells Not Reportable 06/20/20 15:54 Ovalocytes Not Reportable 06/20/20 15:54 Helmet Cells Not Reportable 06/20/20 15:54 Pope-Glasford Bodies Not Reportable 06/20/20 15:54 [place] Rings Not Reportable 06/20/20 15:54 Colette Cells Not Reportable 06/20/20 15:54 Bite Cells Not Reportable 06/20/20 15:54 Crenated Cell Not Reportable 06/20/20 15:54 Elliptocytes Not Reportable 06/20/20 15:54 Acanthocytes (Spur) Not Reportable 06/20/20 15:54 Rouleaux Not Reportable 06/20/20 15:54 Hemoglobin C Crystals Not Reportable 06/20/20 15:54 Schistocytes Not Reportable 06/20/20 15:54 Malaria parasites Not Reportable 06/20/20 15:54 Aden Bodies Not Reportable 06/20/20 15:54 Hem Pathologist Commnt No 06/20/20 15:54 VBG pH 7.229 (7.320-7.420) L 06/20/20 15:54 Sodium 138 mmol/L (137-145) 06/22/20 08:25 Potassium 5.1 mmol/L (3.6-5.0) H 06/22/20 08:25 Chloride 107.7 mmol/L (98-107) H 06/22/20 08:25 Carbon Dioxide 22 mmol/L (22-30) 06/22/20 08:25 Anion Gap 13 mmol/L 06/22/20 08:25 BUN 39 mg/dL (7-17) H 06/22/20 08:25 Creatinine 2.2 mg/dL (0.6-1.2) H 06/22/20 08:25 Estimated GFR 24 ml/min 06/22/20 08:25 BUN/Creatinine Ratio 18 % 06/22/20 08:25 Glucose 216 mg/dL (65-100) H 06/22/20 08:25 POC Glucose 71 mg/dL (70-105) 06/22/20 05:28 Hemoglobin A1c 9.3 % (4-6) H 06/20/20 23:30 Ketones Quantitative Small (Negative) 06/20/20 15:54 Calcium 8.1 mg/dL (8.4-10.2) L 06/22/20 08:25 Phosphorus 2.40 mg/dL (2.5-4.5) L 06/22/20 08:25 Magnesium 1.70 mg/dL (1.7-2.3) 06/22/20 08:25 Total Bilirubin 0.40 mg/dL (0.1-1.2) 06/20/20 15:54 AST 24 units/L (5-40) 06/20/20 15:54 ALT 14 units/L (7-56) 06/20/20 15:54 Alkaline Phosphatase 64 units/L (35-129) 06/20/20 15:54 Ammonia 51.0 umol/L (25-60) 06/20/20 15:54 Troponin T 0.025 ng/mL (0.00-0.029) 06/20/20 15:54 Total Protein 6.5 g/dL (6.3-8.2) 06/20/20 15:54 Albumin 3.5 g/dL (3.9-5) L 06/20/20 15:54 Albumin/Globulin Ratio 1.2 % 06/20/20 15:54 TSH 0.349 mlU/mL (0.270-4.200) 06/20/20 15:54 Urine Color Yellow (Yellow) 06/21/20 01:50 Urine Turbidity Cloudy (Clear) 06/21/20 01:50 Urine pH 5.0 (5.0-7.0) 06/21/20 01:50 Ur Specific [place] 1.013 (1.003-1.030) 06/21/20 01:50 Urine Protein <15 mg/dl mg/dL (Negative) 06/21/20 01:50 Urine Glucose (UA) >=500 mg/dL (Negative) 06/21/20 01:50 Urine Ketones 20 mg/dL (Negative) 06/21/20 01:50 Urine Blood Neg (Negative) 06/21/20 01:50 Urine Nitrite Neg (Negative) 06/21/20 01:50 Urine Bilirubin Neg (Negative) 06/21/20 01:50 Urine Urobilinogen < 2.0 mg/dL (<2.0) 06/21/20 01:50 Ur Leukocyte Esterase Neg (Negative) 06/21/20 01:50 Urine WBC (Auto) 4.0 /HPF (0.0-6.0) 06/21/20 01:50 Urine RBC (Auto) 7.0 /HPF (0.0-6.0) 06/21/20 01:50 U Epithel Cells (Auto) 21.0 /HPF (0-13.0) H 06/21/20 01:50 Urine Mucus Few /HPF 06/21/20 01:50 Urine Creatinine 74.0 mg/dL (0.1-20.0) H 06/21/20 01:50 Urine Microalbumin 4.0 mg/dL (0.1-34.0) 06/21/20 01:50 Microalb/Creat Ratio 54.0 ug/mg 06/21/20 01:50 Urine Opiates Screen Presumptive negative 06/21/20 01:50 Urine Methadone Screen Presumptive negative 06/21/20 01:50 Ur Barbiturates Screen Presumptive negative 06/21/20 01:50 Ur Phencyclidine Scrn Presumptive negative 06/21/20 01:50 Ur Amphetamines Screen Presumptive negative 06/21/20 01:50 U Benzodiazepines Scrn Presumptive negative 06/21/20 01:50 Urine Cocaine Screen Presumptive negative 06/21/20 01:50 U Marijuana (THC) Screen Presumptive positive 06/21/20 01:50 Drugs of Abuse Note Disclamer 06/21/20 01:50 Plasma/Serum Alcohol < 0.01 % (0-0.07) 06/20/20 15:54 [place]/IV: Voiding Method External Female Catheter IV Catheter Type [Right Peripheral IV Forearm] Active Medications - Current Medications Current Medications: Generic Name Dose Route Start Last Admin Trade Name Freq PRN Reason Stop Dose Admin Acetaminophen 650 mg 06/20/20 22:20 Tylenol PO Q4H PRN Pain MILD(1-3)/Fever >100.5/ELY Dextrose 50 ml 06/21/20 13:00 D50w (25gm) Syringe IV Q30MIN PRN Hypoglycemia Protocol Famotidine 20 mg 06/20/20 23:00 06/22/20 10:02 Pepcid IV 20 mg DAILY GHASSAN Administration Ceftriaxone Sodium 2 gm in 100 mls @ 200 mls/hr 06/21/20 10:00 06/22/20 10:01 Rocephin/Ns 2 Gm/100 Ml IV 200 mls/hr Q24HR GHASSAN Administration Protocol Sodium Chloride 1,000 mls @ 150 mls/hr 06/20/20 23:00 06/22/20 01:18 Nacl 0.9% 1000 Ml IV 150 mls/hr DIRECT GHASSAN Administration Insulin Human NPH 10 unit 06/21/20 17:00 06/22/20 10:02 Humulin N SUB-Q 10 unit BIDDIAB GHASSAN Administration Insulin Human Regular 0 unit 06/21/20 23:27 06/22/20 05:54 Humulin R SUB-Q Not Given Q6HR GHASSAN Protocol Lactated Ringer's 1,000 ml 06/21/20 14:00 06/22/20 09:58 Lactated Ringers IV 1,000 ml DIRECT GHASSAN Administration Metoclopramide HCl 5 mg 06/20/20 22:27 Reglan IV Q6H PRN Nausea And Vomiting Ondansetron HCl 4 mg 06/20/20 22:20 Zofran IV Q3H PRN Nausea And Vomiting Sodium Chloride 10 ml 06/21/20 10:00 06/22/20 10:02 Sodium Chloride Flush Syringe 10 Ml IV 10 ml BID GHASSAN Administration Sodium Chloride 10 ml 10/23/20 22:20 06/21/20 23:34 Sodium Chloride Flush Syringe 10 Ml IV 10 ml PRN PRN Administration LINE FLUSH Nutrition/Malnutrition Assess - Dietary Evaluation Nutrition/Malnutrition Findings: Nutrition Notes Start: 06/21/20 12:21 Freq: Status: Active Protocol: Document 06/21/20 12:21 (Rec: 06/21/20 12:31 [id number]) Nutrition Notes Need for Assessment generated from: MD Order,Education Initial or Follow up Assessment Current Diagnosis CKD(stage I-IV),Diabetes Other Pertinent Diagnosis T1DM, DKA, acute on chronic CKD Current Diet NPO Labs/Tests A1c 9.3 Pertinent Medications D5w 1/2 NS at 125 ml/hr KCl 20 mEq Height 5 ft 6 in Weight 76.5 kg Usual Body Weight 80.9 kg [place] Body Weight (kg) 59.09 BMI 27.2 Intake Prior to Admission Poor Weight change and time frame 5% wt loss Weight Status Overweight Subjective/Other Information MD order for diet edu. Pt reports she was sick and vomiting FINGER BUFF SEWER causing high BG. Pt does not know why she has lost weight and unsure the last time she weighed her UBW. Pt seems slightly confused. Pt unable to read due to poor eyesight. Burn Absent Trauma Absent GI Symptoms None Current % PO Negligible Minimum of two criteria No physical signs of malnutrition #2 Nutrition Diagnosis Food and nutrition-related knowledge deficit Etiology pt with no prior DKA edu As Evidenced by Signs and Symptoms pt had questions #1 Nutrition Diagnosis Predicted suboptimal energy intake Etiology DKA As Evidenced by Signs and Symptoms pt NPO Is patient on ventilator? No Is Patient Ambulatory and/or Out of Bed Yes REE-(Geronimo-St. Jeor-ambulatory/OOB) [ [id number] [id number]] Calculation Used for Recommendations Geronimo-St Jeor Additional Notes Pro: 46-61 g(0.6-0.8 g/kg) Fluid: 1 ml/kcal Nutrition Intervention Change Diet Order: Advance when medically able Teaching Recipient Patient Learning Readiness Fair Teaching Methods Discussion,Handout Response to Teaching Reinforcement needed Education Handouts Provided Hypo/Hyperglycemia Symtoms DKA Planning Healthy Meals Barriers to Learning Reading skills,Cognitive/ Verbal RD phone number provided Yes Patient aware of follow up options Yes Goal #1 Diet advancement Goal #2 DM diet understanding Follow-Up By: 06/24/20 Additional Comments FU for intakes, diet education reinforcement
--- NOTE | 2020-06-22 11:18 | Progress Note ---
Assessment and Plan 1. Acute kidney injury: Vasomotor ISSAC superimposed on CKD in the setting of volume depletion, shock and DKA. Monitor renal function. Creatinine level is improving. Renal prognosis is guarded. Avoid nephrotoxic agents. Meds dosage based on GFR. 2. FEN: Anion-gap metabolic acidosis, 2/2 to DKA, monitor. Mild hyperkalemia, monitor. Monitor lytes and volume status. 3. Hypotension: BP is better. Monitor BP. 4. DKA: IV Insulin and IV fluids. Monitor glucose levels. 5. Suspected sepsis, POA: Continue abx. 6. Acute metabolic encephalopathy, POA: Improving. - Subjective: Patient was seen and examined at the bedside. Doing ok. - General Appearance: General appearance: well-developed, appears stated age, not in distress HEENT: ATNC, pupils appears equal Neck: Trachea midline Respiratory: appears ctab Cardiology: regular, S1S2, no murmur Gastrointestinal: soft, not tender, not distended Integumentary: no obvious rash Neurologic: alert, slight confusion, able to move extremities Ext: no edema noted Subjective Date of service: 06/22/20 Objective - Vital Signs Vital signs: Vital Signs - 12hr 06/21/20 06/21/20 06/21/20 23:31 23:40 23:51 Temperature 98.7 F Pulse Rate 96 H 89 Pulse Rate [ 90 From Monitor] Respiratory 13 11 L 18 Rate Blood Pressure 122/72 139/71 O2 Sat by Pulse 98 99 98 Oximetry 06/22/20 06/22/20 04:00 05:11 Temperature 98.5 F Pulse Rate 87 Pulse Rate [ 88 From Monitor] Respiratory 16 16 Rate Blood Pressure 154/75 O2 Sat by Pulse 100 100 Oximetry - Lab 06/20/20 15:54 06/22/20 08:25 Most recent lab results Calcium 8.1 mg/dL (8.4-10.2) L 06/22/20 08:25 Phosphorus 2.40 mg/dL (2.5-4.5) L 06/22/20 08:25 Magnesium 1.70 mg/dL (1.7-2.3) 06/22/20 08:25 Urine Creatinine 74.0 mg/dL (0.1-20.0) H 06/21/20 01:50 Medications & Allergies - Medications Allergies/Adverse Reactions: Allergies codeine Allergy (Verified 06/20/20 16:09) Itching Home Medications: Home Medications Medication Instructions Recorded Confirmed Last Taken Type amLODIPine 10 mg PO QDAY #30 tablet 05/03/20 06/21/20 Unknown Rx carvediloL [Coreg] 6.25 mg PO QDAY@0800 #60 tablet 05/03/20 06/21/20 Unknown Rx hydrALAZINE [Apresoline TAB] 50 mg PO Q8HR #180 tablet 05/03/20 06/21/20 Unknown Rx Levothyroxine [Synthroid] 125 mcg PO DAILY 06/21/20 06/21/20 Unknown History valACYclovir [Valtrex] 500 mg PO DAILY 06/21/20 06/21/20 Unknown History Active Medications: Generic Name Dose Route Start Last Admin Trade Name Freq PRN Reason Stop Dose Admin Acetaminophen 650 mg 06/20/20 22:20 Tylenol PO Q4H PRN Pain MILD(1-3)/Fever >100.5/ELY Dextrose 50 ml 06/21/20 13:00 D50w (25gm) Syringe IV Q30MIN PRN Hypoglycemia Protocol Famotidine 20 mg 06/20/20 23:00 06/22/20 10:02 Pepcid IV 20 mg DAILY GHASSAN Administration Ceftriaxone Sodium 2 gm in 100 mls @ 200 mls/hr 06/21/20 10:00 06/22/20 10:01 Rocephin/Ns 2 Gm/100 Ml IV 200 mls/hr Q24HR GHASSAN Administration Protocol Sodium Chloride 1,000 mls @ 150 mls/hr 06/20/20 23:00 06/22/20 01:18 Nacl 0.9% 1000 Ml IV 150 mls/hr DIRECT GHASSAN Administration Insulin Human Isoph/Insulin Regular 10 unit 06/22/20 17:00 Humulin 70/30 SUB-Q BIDDIAB GHASSAN Insulin Human Lispro 0 unit 06/22/20 11:30 Humalog SUB-Q ACHS GHASSAN Protocol Lactated Ringer's 1,000 ml 06/21/20 14:00 06/22/20 09:58 Lactated Ringers IV 1,000 ml DIRECT GHASSAN Administration Metoclopramide HCl 5 mg 06/20/20 22:27 Reglan IV Q6H PRN Nausea And Vomiting Ondansetron HCl 4 mg 06/20/20 22:20 Zofran IV Q3H PRN Nausea And Vomiting Sodium Chloride 10 ml 06/21/20 10:00 06/22/20 10:02 Sodium Chloride Flush Syringe 10 Ml IV 10 ml BID GHASSAN Administration Sodium Chloride 10 ml 06/20/20 22:20 06/21/20 23:34 Sodium Chloride Flush Syringe 10 Ml IV 10 ml PRN PRN Administration LINE FLUSH
[2020-06-22] MEDS: INSULIN LISPRO 100 UNIT/ML VIAL 3 mL SUB-Q SCH ×4 (12:48→22:41)
[2020-06-22] MEDS ORDERED: SODIUM PHOSPHATE 30 MMOL in SODIUM CHLORIDE 0.9% 500 ML 500 ML IV ONE (13:00)
[2020-06-22] MEDS: INSULIN NPH/REGULAR 70/30 INJ SUB-Q SCH (18:12)
--- NOTE | 2020-06-23 08:16 | Progress Note ---
Assessment and Plan Assessment and plan: --Type 2 diabetes mellitus; Current Visit: Yes Status: Acute Plan to address problem: Moderate control Increase insulin Novolin 70/30 to 14 units twice daily Diabetic education, nutrition education --s/p DKA (diabetic ketoacidoses) Current Visit: Yes Status: Acute Plan to address problem: s/p DKA pathway per protocol, Diabetic education, nutrition education home health nurse for disease monitoring at discharge. HbA1c 9.3 --Acute metabolic encephalopathy Current Visit: Yes Status: Acute Plan to address problem: Multifactorial , patient more alert and awake Significantly improved -- Hyperkalemia; present on admission Current Visit: Yes Status: Acute Plan to address problem: Resolved .closely monitor electrolytes and correct as needed --SIRS; Current Visit: Yes Status: Acute Plan to address problem: Tachycardia , leukocytosis WBC 26,000 Follow cultures, empiric Rocephin Urinalysis and urine cultures ordered --Acute on CKD 3 (chronic kidney disease) Current Visit: Yes Status: Acute Plan to address problem: Renal function gradually improving, Cr trending down 3.4-2.2 due to diabetic nephropathy , dehydration prerenal azotemia As well as vasomotor nephropathy, avoid nephrotoxins nephrology following --Dyslipidemia ; Current Visit: Yes Status: Chronic Plan to address problem: Continue statins, low-cholesterol diet --DVT prophylaxis Current Visit: Yes Status: Acute Plan to address problem: On heparin and GI prophylaxis Patient's symptoms significantly improved Ambulate as tolerated Possible discharge in 1 to 2 days if stable DC planning; case management, possible home health nurse For disease monitoring at discharge Hospitalist Physical - Constitutional Vitals: Temp Pulse Resp BP Pulse Ox 97.9 F 89 20 173/93 98 06/23/20 05:24 06/23/20 05:24 06/23/20 05:24 06/23/20 05:24 06/23/20 05:24 General appearance: Present: no acute distress, well-nourished HEART Score - HEART Score Troponin: Troponin T 0.025 ng/mL (0.00-0.029) 06/20/20 15:54 Results - Labs CBC & Chem 7: 06/20/20 15:54 06/22/20 08:25 Labs: Laboratory Last Values WBC 26.7 K/mm3 (4.5-11.0) H 06/20/20 15:54 RBC 3.22 M/mm3 (3.65-5.03) L 06/20/20 15:54 Hgb 11.4 gm/dl (10.1-14.3) 06/20/20 15:54 Hct 35.6 % (30.3-42.9) 06/20/20 15:54 MCV 111 fl (79-97) H 06/20/20 15:54 MCH 36 pg (28-32) H 06/20/20 15:54 MCHC 32 % (30-34) 06/20/20 15:54 RDW 15.1 % (13.2-15.2) 06/20/20 15:54 Plt Count 244 K/mm3 (140-440) 06/20/20 15:54 Add Manual Diff Complete 06/20/20 15:54 Total Counted 100 06/20/20 15:54 Seg Neuts % (Manual) 84.0 % (40.0-70.0) H 06/20/20 15:54 Band Neutrophils % 0 % 06/20/20 15:54 Lymphocytes % (Manual) 10.0 % (13.4-35.0) L 06/20/20 15:54 Reactive Lymphs % (Man) 0 % 06/20/20 15:54 Monocytes % (Manual) 6.0 % (0.0-7.3) 06/20/20 15:54 Eosinophils % (Manual) 0 % (0.0-4.3) 06/20/20 15:54 Basophils % (Manual) 0 % (0.0-1.8) 06/20/20 15:54 Metamyelocytes % 0 % 06/20/20 15:54 Myelocytes % 0 % 06/20/20 15:54 Promyelocytes % 0 % 06/20/20 15:54 Blast Cells % 0 % 06/20/20 15:54 Nucleated RBC % Not Reportable 06/20/20 15:54 Seg Neutrophils # Man 22.4 K/mm3 (1.8-7.7) H 06/20/20 15:54 Band Neutrophils # 0.0 K/mm3 06/20/20 15:54 Lymphocytes # (Manual) 2.7 K/mm3 (1.2-5.4) 06/20/20 15:54 Abs React Lymphs (Man) 0.0 K/mm3 06/20/20 15:54 Monocytes # (Manual) 1.6 K/mm3 (0.0-0.8) H 06/20/20 15:54 Eosinophils # (Manual) 0.0 K/mm3 (0.0-0.4) 06/20/20 15:54 Basophils # (Manual) 0.0 K/mm3 (0.0-0.1) 06/20/20 15:54 Metamyelocytes # 0.0 K/mm3 06/20/20 15:54 Myelocytes # 0.0 K/mm3 06/20/20 15:54 Promyelocytes # 0.0 K/mm3 06/20/20 15:54 Blast Cells # 0.0 K/mm3 06/20/20 15:54 WBC Morphology Not Reportable 06/20/20 15:54 Hypersegmented Neuts Not Reportable 06/20/20 15:54 Hyposegmented Neuts Not Reportable 06/20/20 15:54 Hypogranular Neuts Not Reportable 06/20/20 15:54 Smudge Cells Not Reportable 06/20/20 15:54 Toxic Granulation Not Reportable 06/20/20 15:54 Toxic Vacuolation Not Reportable 06/20/20 15:54 Dohle Bodies Not Reportable 06/20/20 15:54 Pelger-Huet Anomaly Not Reportable 06/20/20 15:54 Mekhi Rods Not Reportable 06/20/20 15:54 Platelet Estimate Not Reportable 06/20/20 15:54 Clumped Platelets Not Reportable 06/20/20 15:54 Plt Clumps, EDTA Not Reportable 06/20/20 15:54 Large Platelets Not Reportable 06/20/20 15:54 Giant Platelets Not Reportable 06/20/20 15:54 Platelet Satelliting Not Reportable 06/20/20 15:54 Plt Morphology Comment Not Reportable 06/20/20 15:54 RBC Morphology Normal 06/20/20 15:54 Dimorphic RBCs Not Reportable 06/20/20 15:54 Polychromasia Not Reportable 06/20/20 15:54 Hypochromasia Not Reportable 06/20/20 15:54 Poikilocytosis Not Reportable 06/20/20 15:54 Anisocytosis Not Reportable 06/20/20 15:54 Microcytosis Not Reportable 06/20/20 15:54 Macrocytosis Not Reportable 06/20/20 15:54 Spherocytes Not Reportable 06/20/20 15:54 Pappenheimer Bodies Not Reportable 06/20/20 15:54 Sickle Cells Not Reportable 06/20/20 15:54 Target Cells Not Reportable 06/20/20 15:54 Tear Drop Cells Not Reportable 06/20/20 15:54 Ovalocytes Not Reportable 06/20/20 15:54 Helmet Cells Not Reportable 06/20/20 15:54 Pope-Erwin Bodies Not Reportable 06/20/20 15:54 Reedy Rings Not Reportable 06/20/20 15:54 Colette Cells Not Reportable 06/20/20 15:54 Bite Cells Not Reportable 06/20/20 15:54 Crenated Cell Not Reportable 06/20/20 15:54 Elliptocytes Not Reportable 06/20/20 15:54 Acanthocytes (Spur) Not Reportable 06/20/20 15:54 Rouleaux Not Reportable 06/20/20 15:54 Hemoglobin C Crystals Not Reportable 06/20/20 15:54 Schistocytes Not Reportable 06/20/20 15:54 Malaria parasites Not Reportable 06/20/20 15:54 Aden Bodies Not Reportable 06/20/20 15:54 Hem Pathologist Commnt No 06/20/20 15:54 VBG pH 7.229 (7.320-7.420) L 06/20/20 15:54 Sodium 138 mmol/L (137-145) 06/22/20 08:25 Potassium 5.1 mmol/L (3.6-5.0) H 06/22/20 08:25 Chloride 107.7 mmol/L (98-107) H 06/22/20 08:25 Carbon Dioxide 22 mmol/L (22-30) 06/22/20 08:25 Anion Gap 13 mmol/L 06/22/20 08:25 BUN 39 mg/dL (7-17) H 06/22/20 08:25 Creatinine 2.2 mg/dL (0.6-1.2) H 06/22/20 08:25 Estimated GFR 24 ml/min 06/22/20 08:25 BUN/Creatinine Ratio 18 % 06/22/20 08:25 Glucose 216 mg/dL (65-100) H 06/22/20 08:25 POC Glucose 209 mg/dL (70-105) H 06/22/20 22:47 Hemoglobin A1c 9.3 % (4-6) H 06/20/20 23:30 Ketones Quantitative Small (Negative) 06/20/20 15:54 Calcium 8.1 mg/dL (8.4-10.2) L 06/22/20 08:25 Phosphorus 2.40 mg/dL (2.5-4.5) L 06/22/20 08:25 Magnesium 1.70 mg/dL (1.7-2.3) 06/22/20 08:25 Total Bilirubin 0.40 mg/dL (0.1-1.2) 06/20/20 15:54 AST 24 units/L (5-40) 06/20/20 15:54 ALT 14 units/L (7-56) 06/20/20 15:54 Alkaline Phosphatase 64 units/L (35-129) 06/20/20 15:54 Ammonia 51.0 umol/L (25-60) 06/20/20 15:54 Troponin T 0.025 ng/mL (0.00-0.029) 06/20/20 15:54 Total Protein 6.5 g/dL (6.3-8.2) 06/20/20 15:54 Albumin 3.5 g/dL (3.9-5) L 06/20/20 15:54 Albumin/Globulin Ratio 1.2 % 06/20/20 15:54 TSH 0.349 mlU/mL (0.270-4.200) 06/20/20 15:54 Urine Color Yellow (Yellow) 06/21/20 01:50 Urine Turbidity Cloudy (Clear) 06/21/20 01:50 Urine pH 5.0 (5.0-7.0) 06/21/20 01:50 Ur Specific [place] 1.013 (1.003-1.030) 06/21/20 01:50 Urine Protein <15 mg/dl mg/dL (Negative) 06/21/20 01:50 Urine Glucose (UA) >=500 mg/dL (Negative) 06/21/20 01:50 Urine Ketones 20 mg/dL (Negative) 06/21/20 01:50 Urine Blood Neg (Negative) 06/21/20 01:50 Urine Nitrite Neg (Negative) 06/21/20 01:50 Urine Bilirubin Neg (Negative) 06/21/20 01:50 Urine Urobilinogen < 2.0 mg/dL (<2.0) 06/21/20 01:50 Ur Leukocyte Esterase Neg (Negative) 06/21/20 01:50 Urine WBC (Auto) 4.0 /HPF (0.0-6.0) 06/21/20 01:50 Urine RBC (Auto) 7.0 /HPF (0.0-6.0) 06/21/20 01:50 U Epithel Cells (Auto) 21.0 /HPF (0-13.0) H 06/21/20 01:50 Urine Mucus Few /HPF 06/21/20 01:50 Urine Creatinine 74.0 mg/dL (0.1-20.0) H 06/21/20 01:50 Urine Microalbumin 4.0 mg/dL (0.1-34.0) 06/21/20 01:50 Microalb/Creat Ratio 54.0 ug/mg 06/21/20 01:50 Urine Opiates Screen Presumptive negative 06/21/20 01:50 Urine Methadone Screen Presumptive negative 06/21/20 01:50 Ur Barbiturates Screen Presumptive negative 06/21/20 01:50 Ur Phencyclidine Scrn Presumptive negative 06/21/20 01:50 Ur Amphetamines Screen Presumptive negative 06/21/20 01:50 U Benzodiazepines Scrn Presumptive negative 06/21/20 01:50 Urine Cocaine Screen Presumptive negative 06/21/20 01:50 U Marijuana (THC) Screen Presumptive positive 06/21/20 01:50 Drugs of Abuse Note Disclamer 06/21/20 01:50 Plasma/Serum Alcohol < 0.01 % (0-0.07) 06/20/20 15:54 Microbiology: Microbiology 06/21/20 01:50 Urine,[place] Urine Culture - Preliminary [place]/IV: Voiding Method Toilet IV Catheter Type [Right Peripheral IV Forearm] Active Medications - Current Medications Current Medications: Generic Name Dose Route Start Last Admin Trade Name Freq PRN Reason Stop Dose Admin Acetaminophen 650 mg 06/20/20 22:20 Tylenol PO Q4H PRN Pain MILD(1-3)/Fever >100.5/ELY Dextrose 50 ml 06/21/20 13:00 D50w (25gm) Syringe IV Q30MIN PRN Hypoglycemia Protocol Famotidine 20 mg 06/23/20 10:00 Pepcid PO DAILY GHASSAN Ceftriaxone Sodium 2 gm in 100 mls @ 200 mls/hr 06/21/20 10:00 06/22/20 10:01 Rocephin/Ns 2 Gm/100 Ml IV 200 mls/hr Q24HR GHASSAN Administration Protocol Sodium Chloride 1,000 mls @ 150 mls/hr 06/20/20 23:00 06/22/20 18:07 Nacl 0.9% 1000 Ml IV 150 mls/hr DIRECT GHASSAN Administration Insulin Human Isoph/Insulin Regular 10 unit 06/22/20 17:00 06/22/20 18:12 Humulin 70/30 SUB-Q 10 unit BIDDIAB GHASSAN Administration Insulin Human Lispro 0 unit 06/22/20 11:30 06/22/20 22:41 Humalog SUB-Q 3 unit ACHS GHASSAN Administration Protocol Lactated Ringer's 1,000 ml 06/21/20 14:00 06/22/20 09:58 Lactated Ringers IV 1,000 ml DIRECT GHASSAN Administration Metoclopramide HCl 5 mg 06/20/20 22:27 Reglan IV Q6H PRN Nausea And Vomiting Ondansetron HCl 4 mg 06/20/20 22:20 Zofran IV Q3H PRN Nausea And Vomiting Sodium Chloride 10 ml 06/21/20 10:00 06/22/20 22:44 Sodium Chloride Flush Syringe 10 Ml IV 10 ml BID GHASSAN Administration Sodium Chloride 10 ml 06/20/20 22:20 06/21/20 23:34 Sodium Chloride Flush Syringe 10 Ml IV 10 ml PRN PRN Administration LINE FLUSH Nutrition/Malnutrition Assess - Dietary Evaluation Nutrition/Malnutrition Findings: Nutrition Notes Start: 06/21/20 12:21 Freq: Status: Active Protocol: Document 06/21/20 12:21 NORMAN (Rec: 06/21/20 12:31 NORMAN [id number]) Nutrition Notes Need for Assessment generated from: MD Order,Education Initial or Follow up Assessment Current Diagnosis CKD(stage I-IV),Diabetes Other Pertinent Diagnosis T1DM, DKA, acute on chronic CKD Current Diet NPO Labs/Tests A1c 9.3 Pertinent Medications D5w 1/2 NS at 125 ml/hr KCl 20 mEq Height 5 ft 6 in Weight 76.5 kg Usual Body Weight 80.9 kg [place] Body Weight (kg) 59.09 BMI 27.2 Intake Prior to Admission Poor Weight change and time frame 5% wt loss Weight Status Overweight Subjective/Other Information MD order for diet edu. 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 Pt does not know why she has lost weight and unsure the last time she weighed her UBW. Pt seems slightly confused. Pt unable to read due to poor eyesight. Burn Absent Trauma Absent GI Symptoms None Current % PO Negligible Minimum of two criteria No physical signs of malnutrition #2 Nutrition Diagnosis Food and nutrition-related knowledge deficit Etiology pt with no prior DKA edu As Evidenced by Signs and Symptoms pt had questions #1 Nutrition Diagnosis Predicted suboptimal energy intake Etiology DKA As Evidenced by Signs and Symptoms pt NPO Is patient on ventilator? No Is Patient Ambulatory and/or Out of Bed Yes REE-([place]-ambulatory/OOB) [ 1822.275 [id number]] Calculation Used for Recommendations [facility] Additional Notes Pro: 46-61 g(0.6-0.8 g/kg) Fluid: 1 ml/kcal Nutrition Intervention Change Diet Order: Advance when medically able Teaching Recipient Patient Learning Readiness Fair Teaching Methods Discussion,Handout Response to Teaching Reinforcement needed Education Handouts Provided Hypo/Hyperglycemia Symtoms DKA Planning Healthy Meals Barriers to Learning Reading skills,Cognitive/ Verbal RD phone number provided Yes Patient aware of follow up options Yes Goal #1 Diet advancement Goal #2 DM diet understanding Follow-Up By: 06/24/20 Additional Comments FU for intakes, diet education reinforcement
[2020-06-23 09:11] LABS: Basophils % (Auto) 0.4 % (0.0-1.8); Eosinophils # (Auto) 0.2 K/mm3 (0.0-0.4); Eosinophils % (Auto) 1.4 % (0.0-4.3); Hematocrit 30.7 % (30.3-42.9); Hemoglobin 10.5 gm/dl (10.1-14.3); Lymphocytes % (Auto) 18.1 % (13.4-35.0); Mean Corpuscular HGB Conc 34 % (30-34); Mean Corpuscular Volume 103 fl (79-97); Monocytes # (Auto) 0.7 K/mm3 (0.0-0.8); Monocytes % (Auto) 6.6 % (0.0-7.3); Platelet Count 148 K/mm3 (140-440); Red Blood Count 2.98 M/mm3 (3.65-5.03); Red Cell Distribution Width 14.2 % (13.2-15.2)
[2020-06-23] MEDS: SODIUM CHLORIDE 0.9% 1000 ML 1,000 ML IV SCH (09:27)
[2020-06-23] MEDS: INSULIN NPH/REGULAR 70/30 INJ SUB-Q SCH ×2 (09:28→17:27)
[2020-06-23] MEDS: INSULIN LISPRO 100 UNIT/ML VIAL 3 mL SUB-Q SCH ×3 (09:35→17:26)
[2020-06-23] MEDS: cefTRIAXone/NS 2 GM/100 ML 2 GM/100 ML BAG IV SCH (09:36)
[2020-06-23 09:41] LABS: Calcium 7.9 mg/dL (8.4-10.2)
[2020-06-23] MEDS ORDERED: FAMOTIDINE 20 MG TAB PO SCH (10:00)
[2020-06-23] MEDS ORDERED: amLODIPine 10 MG TAB PO SCH (10:30)
[2020-06-23] MEDS ORDERED: carvediloL 6.25 MG TAB PO SCH (10:30)
[2020-06-23] MEDS ORDERED: MAGNESIUM SULFATE 4 GM/100 ML BAG IV ONE (11:00)
[2020-06-23] MEDS ORDERED: hydrALAZINE 25 MG TAB PO NR (13:23)
[2020-06-23] MEDS ORDERED: FUROSEMIDE 40 MG/4 ML INJ IV NR (13:25)
--- NOTE | 2020-06-23 13:27 | Discharge Summary ---
Providers - Providers Date of Admission: 06/20/20 17:59 Date of discharge: 06/23/20 Attending physician: MIGUE MCGILL 06/20/20 22:25 Consult to Dietitian/Nutrition [CONS] Routine Physician Instructions: Reason For Exam: DKA Reason for Consult: Nutrition Recommendations Reason for Consult: Diabetes education 06/21/20 07:26 Consult to Physician [CONS] Routine Comment: Consulting Provider: BERNARDO WILSON Physician Instructions: Reason For Exam: CKD Primary care physician: [employer]ER Hospitalization Reason for admission: Altered mental status since a.m./DKA Condition: Stable Pertinent studies: CT head without contrast; no acute abnormality Chest x-ray; no acute abnormality Hospital course: 50-year-old female with history of type 1 diabetes brought in by EMS from home with altered mental status. Patient was found to have very high blood glucose level of 500 in the emergency room with his around 730. Patient was noted to be in DKA started insulin drip admitted to ICU, evaluated by patient access representative Dr. Mansfield, medications optimized Patient also noted to have acute on chronic kidney disease, evaluated by technical assistant, medications were adjusted to creatinine clearance, avoid nephrotoxins, Patient symptoms slightly improved, renal function mild improvement Symptoms completely resolved, today patient is comfortable no new complaints vital signs stable physical examination prior to discharge is unremarkable Patient is stable at discharge with follow-up with primary care physician as well as technical assistant Patient uses INSULIN PUMP. Patient advised to continue insulin pump per protocol in consultation with PMD/webbing seamer pound net. Patient verbalized understanding Discharge diagnosis; --Type 2 diabetes mellitus; Current Visit: Yes Status: Acute Plan to address problem: Moderate control Increase insulin Novolin 70/30 to 14 units twice daily Diabetic education, nutrition education prior to discharge --s/p DKA (diabetic ketoacidoses) Current Visit: Yes Status: Acute Plan to address problem: s/p DKA pathway per protocol, Diabetic education, nutrition education home health nurse for disease monitoring at discharge. HbA1c 9.3 --Acute metabolic encephalopathy Current Visit: Yes Status: Acute Plan to address problem: Multifactorial , patient more alert and awake Significantly improved -- Hyperkalemia; present on admission Current Visit: Yes Status: Acute Plan to address problem: Resolved .closely monitor electrolytes and correct as needed --SIRS; Current Visit: Yes Status: Acute Plan to address problem: Tachycardia , leukocytosis WBC 26,000 Follow cultures, empiric Rocephin Urinalysis and urine cultures ordered --Acute on CKD 3 (chronic kidney disease) Current Visit: Yes Status: Acute Plan to address problem: Renal function gradually improving, Cr trending down 3.4-2.2 due to diabetic nephropathy , dehydration prerenal azotemia As well as vasomotor nephropathy, avoid nephrotoxins Nephrology evaluated, follow-up nephrology upon discharge Patient is hemodynamically and clinically stable at discharge Cleared by all the consultants for DC and follow-up in the office per schedule Disposition: DC/[place]-06 HOME UNDER HOME [facility] Time spent for discharge: 35 min Core Measure Documentation - Palliative Care Palliative Care/ Comfort Measures: Not Applicable - Core Measures Any of the following diagnoses?: none Exam - Constitutional Vitals: Temp Pulse Resp BP Pulse Ox 97.9 F 72 20 182/85 98 06/23/20 05:24 06/23/20 12:30 06/23/20 05:24 06/23/20 12:30 06/23/20 05:24 General appearance: Present: no acute distress, well-nourished - EENT Eyes: Present: PERRL, EOM intact - Neck Neck: Present: supple, normal ROM - Respiratory Respiratory effort: normal Respiratory: bilateral: diminished, negative: rales, rhonchi, wheezing - Cardiovascular Rhythm: regular Heart Sounds: Present: S1 & S2 - Extremities Extremities: no ischemia, No edema - Abdominal General gastrointestinal: Present: soft, non-tender, non-distended, normal bowel sounds - Integumentary Integumentary: Present: clear, warm - Musculoskeletal Musculoskeletal: strength equal bilaterally - Psychiatric Psychiatric: appropriate mood/affect, cooperative - Neurologic Neurologic: moves all extremities Plan Activity: advance as tolerated, fall precautions Diet: diabetic Additional Instructions: Patient will continue using her insulin pump as before. patient advised to see private webbing seamer pound net within 1 week. Advised to continue insulin pump as before and check with PMD/webbing seamer pound net as needed. If you have worsening symptoms contact MD or go to emergency room Follow up with: WILMER COLEY MD [Primary Care Provider] - 7 Days BERNARDO WILSON MD [Staff Physician] - 7 Days Prescriptions: amLODIPine 10 mg PO QDAY #30 tablet hydrALAZINE [Apresoline TAB] 50 mg PO Q8HR #180 tablet carvediloL [Coreg] 6.25 mg PO BID #60 tablet Famotidine [Pepcid] 20 mg PO DAILY #30 tablet Levothyroxine [Synthroid] 125 mcg PO DAILY #30
[2020-06-23] MEDS ORDERED: hydrALAZINE 25 MG TAB PO SCH (14:00)
--- NOTE | 2020-06-23 14:10 | Progress Note ---
Assessment and Plan 1. Acute kidney injury: Vasomotor ISSAC superimposed on CKD in the setting of volume depletion, shock and DKA. Monitor renal function. Creatinine level is improving. Renal prognosis is much better. Avoid nephrotoxic agents. Meds dosage based on GFR. 2. FEN: Anion-gap metabolic acidosis, 2/2 to DKA, monitor. Mild hyperkalemia, improved, monitor. Replete Mg. Monitor lytes and volume status. 3. Hypotension: BP is better. Monitor BP. 4. DKA: Improved. Monitor glucose levels. 5. Suspected sepsis, POA: S/p abx. 6. Acute metabolic encephalopathy, POA: Improving. F/u with me in 1-2 weeks. - Subjective: Patient was seen and examined at the bedside. Doing better. - General Appearance: General appearance: well-developed, appears stated age, not in distress HEENT: ATNC, pupils appears equal Neck: Trachea midline Respiratory: appears ctab Cardiology: regular, S1S2, no murmur Gastrointestinal: soft, not tender, not distended Integumentary: no obvious rash Neurologic: alert, slight confusion, able to move extremities Ext: no edema noted Subjective Date of service: 06/23/20 Objective - Vital Signs Vital signs: Vital Signs - 12hr 06/23/20 06/23/20 06/23/20 05:24 12:25 12:30 Temperature 97.9 F Pulse Rate 89 72 72 Respiratory 20 Rate Blood Pressure 173/93 182/85 182/85 O2 Sat by Pulse 98 Oximetry - Lab 06/23/20 08:44 06/23/20 08:44 Most recent lab results Calcium 7.9 mg/dL (8.4-10.2) L 06/23/20 08:44 Phosphorus 3.20 mg/dL (2.5-4.5) D 06/23/20 08:44 Magnesium 1.30 mg/dL (1.7-2.3) L 06/23/20 08:44 Urine Creatinine 74.0 mg/dL (0.1-20.0) H 06/21/20 01:50 Medications & Allergies - Medications Allergies/Adverse Reactions: Allergies codeine Allergy (Verified 06/20/20 16:09) Itching Home Medications: Home Medications Medication Instructions Recorded Confirmed Last Taken Type amLODIPine 10 mg PO QDAY #30 tablet 05/03/20 06/21/20 Unknown Rx carvediloL [Coreg] 6.25 mg PO QDAY@0800 #60 tablet 05/03/20 06/21/20 Unknown Rx hydrALAZINE [Apresoline TAB] 50 mg PO Q8HR #180 tablet 05/03/20 06/21/20 Unknown Rx Levothyroxine [Synthroid] 125 mcg PO DAILY 06/21/20 06/21/20 Unknown History valACYclovir [Valtrex] 500 mg PO DAILY 06/21/20 06/21/20 Unknown History Active Medications: Generic Name Dose Route Start Last Admin Trade Name Freq PRN Reason Stop Dose Admin Acetaminophen 650 mg 06/20/20 22:20 Tylenol PO Q4H PRN Pain MILD(1-3)/Fever >100.5/ELY Amlodipine Besylate 10 mg 06/23/20 10:30 06/23/20 12:30 Amlodipine PO 10 mg QDAY GHASSAN Administration Carvedilol 6.25 mg 06/23/20 10:30 06/23/20 12:25 Coreg PO 6.25 mg BID GHASSAN Administration Dextrose 50 ml 06/21/20 13:00 D50w (25gm) Syringe IV Q30MIN PRN Hypoglycemia Protocol Famotidine 20 mg 06/23/20 10:00 06/23/20 09:28 Pepcid PO 20 mg DAILY GHASSAN Administration Furosemide 40 mg 06/23/20 13:25 Lasix IV 06/23/20 17:00 ONCE NR Hydralazine HCl 50 mg 06/23/20 14:00 Apresoline PO Q8HR GHASSAN Hydralazine HCl 50 mg 06/23/20 13:23 Apresoline PO 06/23/20 16:00 ONCE NR Magnesium Sulfate 4 gm in 100 mls @ 25 mls/hr 06/23/20 11:00 06/23/20 12:30 Magnesium Sulfate 4gm/100ml IV 06/23/20 14:59 25 mls/hr ONCE ONE Administration Insulin Human Isoph/Insulin Regular 10 unit 06/22/20 17:00 06/23/20 09:28 Humulin 70/30 SUB-Q 10 unit BIDDIAB GHASSAN Administration Insulin Human Lispro 0 unit 06/22/20 11:30 06/23/20 09:35 Humalog SUB-Q 2 unit ACHS GHASSAN Administration Protocol Metoclopramide HCl 5 mg 06/20/20 22:27 Reglan IV Q6H PRN Nausea And Vomiting Ondansetron HCl 4 mg 06/20/20 22:20 Zofran IV Q3H PRN Nausea And Vomiting Sodium Chloride 10 ml 06/21/20 10:00 06/23/20 12:20 Sodium Chloride Flush Syringe 10 Ml IV Not Given BID GHASSAN Sodium Chloride 10 ml 06/20/20 22:20 06/21/20 23:34 Sodium Chloride Flush Syringe 10 Ml IV 10 ml PRN PRN Administration LINE FLUSH
[2020-06-23 17:58] VITALS: BP 167/82
[2020-06-23] MEDS ORDERED: hydrALAZINE 25 MG TAB PO ONE (18:43)
== END 2020-06-23 21:24 | disposition home health service (06) | DRG 637 ==
LOC: ED 15:19 → CC1 17:59 → 3A 06-22 00:01
PROVIDERS: ADMIT Internal Medicine; ATTEND Internal Medicine
DX: E10.10 Type 1 diabetes mellitus with ketoacidosis without coma (principal); N17.0 Acute kidney failure with tubular necrosis; G93.41 Metabolic encephalopathy; E87.5 Hyperkalemia; R65.10 Systemic inflammatory response syndrome (SIRS) of non-infectious origin without acute organ dysfunction; N18.4 Chronic kidney disease, stage 4 (severe); E78.2 Mixed hyperlipidemia; E86.0 Dehydration; E10.22 Type 1 diabetes mellitus with diabetic chronic kidney disease; I12.9 Hypertensive chronic kidney disease with stage 1 through stage 4 chronic kidney disease, or unspecified chronic kidney disease; Z86.73 Personal history of transient ischemic attack (TIA), and cerebral infarction without residual deficits; Z85.3 Personal history of malignant neoplasm of breast; Z79.4 Long term (current) use of insulin; Z88.5 Allergy status to narcotic agent
CPT/HCPCS: 36415; 70450; 71045; 80048; 80053; 80307; 80320; 81001; 82010; 82043; 82140; 82805; 82962; 83036; 83735; 84100; 84443; 84484; 85007; 85025; 87086; 96365; 96375; 99406; G0378; G0480; J0696; J1815; J2310; J3475; J7030; J7040; J7050; J7120